=== PATIENT | female | born 1940 | race African-American/Black ===

== ENCOUNTER 2016-12-31 09:23 | Inpatient (IN) | payer MEDICARE ==
[~2016-12-31] VITALS: Ht 156.2 cm; Wt 66.0 kg
[~2016-12-31 09:23] MED LIST: ASPI325T4 PO; ATOR10TA60 PO; CALC600T4 PO; CHOL10003 PO; CHOL400C2 PO; CLOP75TA27 PO; CYAN10005 PO; HYDR12.53 PO; METF500T4 PO; VITA1TAB19 PO
--- NOTE | 2016-12-31 09:32 | PHYS DOC ---
Past Medical History Past Medical History: CVA, Diabetes-Type II, High Cholesterol, Hypertension, TIA, Other Additional Past Medical Histor: seasonal allergies,BELLS PALSEY Past Surgical History: Cholecystectomy, Tonsillectomy, Other Additional Past Surgical Histo: left knee surgery Alcohol Use: None Drug Use: None Adult General HPI HPI Patient is a 76 year old female presenting to the emergency department for evaluation of visual changes that started approximately 845 this morning. Patient says that both of her eyes appears to have crinkled up cellophane appearance. She denies any eye pain fevers chills nausea vomiting or headache. Patient has had a stroke in the past which causes her right hemianopsia and she says this is unchanged in addition to her right-sided facial droop. 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 Patient denies any difficulty speaking dizziness or change in her gait. She is in no obvious distress with normal vital signs. Review of Systems Review of Systems Constitutional: Denies fever or chills [] Eyes: + change in visual acuity. No redness, or eye pain [] HENT: Denies nasal congestion or sore throat [] Respiratory: Denies cough or shortness of breath [] Cardiovascular: No additional information not addressed in HPI [] GI: Denies abdominal pain, nausea, vomiting, bloody stools or diarrhea [] : Denies dysuria or hematuria [] Musculoskeletal: Denies back pain or joint pain [] Integument: Denies rash or skin lesions [] Neurologic: Denies headache, focal weakness or sensory changes [] Current Medications Current Medications Current Medications Medications (Trade) Dose Ordered Sig/[facility] Start Time Stop Time Status Last Admin Dose Admin Ondansetron HCl (Zofran) 4 mg PRN Q8HRS PRN 12/31/16 11:45 01/01/17 11:44 Allergies Allergies Allergies Coded Allergies Type Severity Reaction Last Updated Verified codeine Adverse Reaction Intermediate nausea 01/31/15 Yes ibuprofen Adverse Reaction Intermediate "increased heart rate" 01/31/15 Yes Uncoded Allergies Type Severity Reaction Last Updated Verified antihistamines Adverse Reaction Mild Palpitations 01/31/15 Physical Exam Physical Exam Constitutional: Well developed, well nourished, no acute distress, non-toxic appearance. [] HENT: Normocephalic, atraumatic, bilateral external ears normal, oropharynx moist, no oral exudates, nose normal. [] Eyes: PERRLA, EOMI, conjunctiva normal, no discharge. [] Neck: Normal range of motion, no tenderness, supple, no stridor. [] Cardiovascular:Heart rate regular rhythm, no murmur [] Lungs & Thorax: Bilateral breath sounds clear to auscultation [] Abdomen: Bowel sounds normal, soft, no tenderness, no masses, no pulsatile masses. [] Skin: Warm, dry, no erythema, no rash. [] Back: No tenderness, no CVA tenderness. [] Extremities: No tenderness, no cyanosis, no clubbing, ROM intact, no edema. [] Neurologic: Alert and oriented X 3, normal motor function. Cranial nerves reveal slight right-sided facial droop. Current Patient Data Vital Signs Vital Signs Date Time Temp Pulse Resp B/P (MAP) Pulse Ox O2 Delivery O2 Flow Rate FiO2 12/31/16 09:23 98.5 90 18 144/85 (104) 97 Room Air 98.5 Lab Values Laboratory Tests Test 12/31/16 09:50 12/31/16 10:40 White Blood Count 3.3 x10^3/uL (4.0-11.0) L Red Blood Count 3.94 x10^6/uL (3.50-5.40) Hemoglobin 12.0 g/dL (12.0-15.5) Hematocrit 34.8 % (36.0-47.0) L Mean Corpuscular Volume 88 fL (79-100) Mean Corpuscular Hemoglobin 30 pg (25-35) Mean Corpuscular Hemoglobin Concent 34 g/dL (31-37) Red Cell Distribution Width 14.5 % (11.5-14.5) Platelet Count 285 x10^3/uL (140-400) Neutrophils (%) (Auto) 40 % (31-73) Lymphocytes (%) (Auto) 49 % (24-48) H Monocytes (%) (Auto) 8 % (0-9) Eosinophils (%) (Auto) 2 % (0-3) Basophils (%) (Auto) 1 % (0-3) Neutrophils # (Auto) 1.3 x10^3uL (1.8-7.7) L Lymphocytes # (Auto) 1.6 x10^3/uL (1.0-4.8) Monocytes # (Auto) 0.3 x10^3/uL (0.0-1.1) Eosinophils # (Auto) 0.1 x10^3/uL (0.0-0.7) Basophils # (Auto) 0.0 x10^3/uL (0.0-0.2) Prothrombin Time 14.1 SEC (11.7-14.0) H Prothrombin Time INR 1.2 (0.8-1.1) H PTT 29 SEC (24-38) Sodium Level 138 mmol/L (136-145) Potassium Level 3.3 mmol/L (3.5-5.1) L Chloride Level 101 mmol/L (98-107) Carbon Dioxide Level 29 mmol/L (21-32) Anion Gap 8 (6-14) Blood Urea Nitrogen 14 mg/dL (7-20) Creatinine 0.6 mg/dL (0.6-1.0) Estimated GFR (Cockcroft-Gault) 117.6 BUN/Creatinine Ratio 23 (6-20) H Glucose Level 123 mg/dL (70-99) H Calcium Level 9.2 mg/dL (8.5-10.1) Magnesium Level 1.3 mg/dL (1.8-2.4) L Total Bilirubin 0.8 mg/dL (0.2-1.0) Aspartate Amino Transferase (AST) 23 U/L (15-37) Alanine Aminotransferase (ALT) 21 U/L (14-59) Alkaline Phosphatase 46 U/L (46-116) Creatine Kinase 68 U/L (26-192) Troponin I Quantitative < 0.017 ng/mL (0.000-0.055) CT-Alq-M-Type Natriuretic Peptide 59 pg/mL (0-449) Total Protein 8.5 g/dL (6.4-8.2) H Albumin 3.9 g/dL (3.4-5.0) Albumin/Globulin Ratio 0.8 (1.0-1.7) L Lipase 124 U/L (73-393) Thyroid Stimulating Hormone (TSH) 0.889 uIU/mL (0.358-3.74) Ethyl Alcohol Level < 10 mg/dL (0-10) Urine Collection Type Unknown Urine Color Yellow Urine Clarity Clear Urine pH 6.5 Urine Specific Harvey 1.010 Urine Protein Negative mg/dL (NEG-TRACE) Urine Glucose (UA) Negative mg/dL (NEG) Urine Ketones (Stick) Negative mg/dL (NEG) Urine Blood Negative (NEG) Urine Nitrite Negative (NEG) Urine Bilirubin Negative (NEG) Urine Urobilinogen Dipstick 0.2 mg/dL (0.2 mg/dL) Urine Leukocyte Esterase Trace (NEG) Urine RBC 0 /HPF (0-2) Urine WBC 1-4 /HPF (0-4) Urine Squamous Epithelial Cells Occ /LPF Urine Bacteria Few /HPF (0-FEW) Urine Opiates Screen Neg (NEG) Urine Methadone Screen Neg (NEG) Urine Barbiturates Neg (NEG) Urine Phencyclidine Screen Neg (NEG) Urine Amphetamine/Methamphetamine Neg (NEG) Urine Benzodiazepines Screen Neg (NEG) Urine Cocaine Screen Neg (NEG) Urine Cannabinoids Screen Neg (NEG) Urine Ethyl Alcohol Neg (NEG) Laboratory Tests 12/31/16 09:50 Laboratory Tests 12/31/16 09:50 EKG EKG [] Radiology/Procedures Radiology/Procedures CT of the head without contrast, 12/31/2016: History: Right facial droop, visual changes Comparison is made to a study from 12/24/2014. There is mild cerebral atrophy. The ventricles are mildly prominent on a compensatory basis. There is no shift of the midline structures. There is no evidence of acute intracranial hemorrhage or mass effect. There are mild bilateral deep white matter lucencies compatible with chronic ischemic change. There is a small area of encephalomalacia medially in the left occipital lobe compatible with an old infarct, also noted on the 12/25/2014 MR exam. There is calcific plaquing of the distal internal carotid arteries. IMPRESSION: 1. Cerebral atrophy. 2. Old left occipital lobe infarct. 3. Mild chronic ischemic change in the deep white matter bilaterally. Note: The findings were called to personnel in the [facility] ER at 9:40 AM on 12/31/2016. PQRS Compliance Statement: One or more of the following individualized dose reduction techniques were utilized for this examination: 1. Automated exposure control 2. Adjustment of the mA and/or kV according to patient size 3. Use of iterative reconstruction technique DICTATED and SIGNED BY: NEO BAUMANN MD DATE: 12/31/16 0934 Portable chest, 12/31/2016: History: Visual disturbance, possible stroke Comparison is made to a study from 12/24/2014. The heart is within normal limits in size. There is tortuosity of the thoracic aorta. The pulmonary vascularity is normal. No pulmonary infiltrates are seen. There is no evidence of pleural fluid. There is a mild thoracic scoliosis with multilevel degenerative change. IMPRESSION: No acute cardiopulmonary abnormality is detected. DICTATED and SIGNED BY: NEO BAUMANN MD DATE: 12/31/16 09 Course & Med Decision Making Course & Med Decision Making Patient says that the vision changes are coming and going. She is in a TPA window but given her symptoms are coming and going we'll defer TPA at this time. I spoke to Dr. Bahena and he requested MRI. Dr. Knapp is willing to admit patient. Dragon Disclaimer Dragon Disclaimer This electronic medical record was generated, in whole or in part, using a voice recognition dictation system. Departure Departure Impression: Primary Impression: TIA (transient ischemic attack) Disposition: 09 ADMITTED INPATIENT Admitting Physician: Lubna Knapp Condition: GOOD Referrals: LUBNA KNAPP MD (PCP) Problem Qualifiers Primary Impression: TIA (transient ischemic attack) Transient cerebral ischemia type: unspecified Qualified Codes: G45.9 - Transient cerebral ischemic attack, unspecified KATERIN YANEZ DO December 31, 2016 09:32
--- NOTE | 2016-12-31 09:42 | RAD ---
CT of the head without contrast, 12/31/2016: History: Right facial droop, visual changes Comparison is made to a study from 12/24/2014. There is mild cerebral atrophy. The ventricles are mildly prominent on a compensatory basis. There is no shift of the midline structures. There is no evidence of acute intracranial hemorrhage or mass effect. There are mild bilateral deep white matter lucencies compatible with chronic ischemic change. There is a small area of encephalomalacia medially in the left occipital lobe compatible with an old infarct, also noted on the 12/25/2014 MR exam. There is calcific plaquing of the distal internal carotid arteries. IMPRESSION: 1. Cerebral atrophy. 2. Old left occipital lobe infarct. 3. Mild chronic ischemic change in the deep white matter bilaterally. Note: The findings were called to personnel in the [facility] ER at 9:40 AM on 12/31/2016. PQRS Compliance Statement: One or more of the following individualized dose reduction techniques were utilized for this examination: 1. Automated exposure control 2. Adjustment of the mA and/or kV according to patient size 3. Use of iterative reconstruction technique
--- NOTE | 2016-12-31 09:44 | RAD ---
Portable chest, 12/31/2016: History: Visual disturbance, possible stroke Comparison is made to a study from 12/24/2014. The heart is within normal limits in size. There is tortuosity of the thoracic aorta. The pulmonary vascularity is normal. No pulmonary infiltrates are seen. There is no evidence of pleural fluid. There is a mild thoracic scoliosis with multilevel degenerative change. IMPRESSION: No acute cardiopulmonary abnormality is detected.
[2016-12-31 10:17] LABS: BASO % 1 % (0-3); EOS % 2 % (0-3); HEMATOCRIT 34.8 % (36.0-47.0); LYMPH # 1.6 x10^3/uL (1.0-4.8); LYMPH % 49 % (24-48); MEAN CORPUSCULAR HEMOGLOBIN 30 pg (25-35); MEAN CORPUSCULAR HGB CONC 34 g/dL (31-37); MEAN CORPUSCULAR VOLUME 88 fL (79-100); MONO % 8 % (0-9); NEUT % 40 % (31-73); PLATELET COUNT 285 x10^3/uL (140-400); RED BLOOD COUNT 3.94 x10^6/uL (3.50-5.40); RED CELL DISTRIBUTION WIDTH 14.5 % (11.5-14.5); WHITE BLOOD COUNT 3.3 x10^3/uL (4.0-11.0)
[2016-12-31 10:26] LABS: CALCIUM 9.2 mg/dL (8.5-10.1); CREATININE 0.6 mg/dL (0.6-1.0); GFR 117.6; POTASSIUM 3.3 mmol/L (3.5-5.1)
[2016-12-31 10:31] LABS: INR 1.2 (0.8-1.1); PROTHROMBIN TIME PATIENT 14.1 SEC (11.7-14.0)
[2016-12-31 10:33] LABS: ALBUMIN 3.9 g/dL (3.4-5.0); ALBUMIN/GLOBULIN RATIO 0.8 (1.0-1.7); MAGNESIUM 1.3 mg/dL (1.8-2.4); TOTAL BILIRUBIN 0.8 mg/dL (0.2-1.0); TOTAL PROTEIN 8.5 g/dL (6.4-8.2)
--- NOTE | 2016-12-31 10:37 | EKG ---
[facility] [address] [place] [address] Test Date: 2016-12-31 Test Time: 10:30:28 Pat Name: ANNABEL RAMOS Department: Room: Gender: F [employer]er [employer]er: : 1940 Requested By: KATERIN YANEZ Order Number: [id number] Reading MD: Efe Ventura Measurements Intervals [place] Rate: 86 P: 24 MN: 202 QRS: -15 QRSD: 92 T: 0 QT: 384 QTc: 463 Interpretive Statements SINUS RHYTHM Electronically Signed On 01-01-2017 10:44:12 CDT by Efe Ventura
[2016-12-31 10:54] LABS: BILIRUBIN,URINE NEGATIVE (NEG); GLUCOSE,URINE NEGATIVE (NEG); NITRITE,URINE NEGATIVE (NEG); PH,URINE 6.5; PROTEIN,URINE NEGATIVE (NEG-TRACE); UROBILINOGEN,URINE 0.2 mg/dL (0.2 mg/dL)
[2016-12-31 11:00] LABS: BARBITURATES NEG (NEG); BENZODIAZEPINES NEG (NEG); CANNABINOIDS NEG (NEG); COCAINE NEG (NEG); METHADONE NEG (NEG); OPIATES NEG (NEG); PHENCYCLIDINE NEG (NEG)
[2016-12-31 11:05] LABS: BACTERIA,URINE FEW /HPF (0-FEW); RBC,URINE 0 /HPF (0-2); SQUAMOUS EPITHELIAL CELL,UR OCC /LPF
[2016-12-31] MEDS ORDERED: ONDANSETRON PF 4 MG/2 ML VIAL. IV PRN (11:45)
--- NOTE | 2016-12-31 13:43 | ACF ---
Admission Forms Criteria TRANSIENT ISCHEMIC ATTACK (TIA) Clinical Indications for Admission to Inpatient Care (Place 'X' for any and all applicable criteria): Admission is indicated for ANY ONE of the following(1)(2)(3)(4)(5): [ ]I. Immediate inpatient procedure is needed (eg, endarterectomy). [X]II. Inpatient admission required rather than observation care (Also use Transient Ischemic Attack (TIA): Observation Care Criteria as appropriate) because of ANY ONE of the following: [X]a) Focal neurologic signs or symptoms persist or recurring [ ]b) Cardiac arrhythmias of immediate concern [ ]c) Clinically significant cardiac disorder identified that requires inpatient care (eg, severe valvular disease, atrial myxoma, cardiomyopathy) [ ]d) Hypertension requiring inpatient treatment [ ]e) Parenteral anticoagulation required (eg, alternative forms of anticoagulation not appropriate or not feasible) as indicated by ALL of the following(13): [ ]i) Temporary subtherapeutic anticoagulation unacceptable because of high risk of short-term venous or arterial thromboembolism due to ANY ONE of the following(14)(15)(16): [ ]1) Atrial fibrillation suspected as etiology of TIA(17)(18)(19)(20)(21) [ ]2) Venous thromboembolism within past 12 months [ ]3) Underlying malignancy [ ]4) Patient with mechanical cardiac valve(22)( 23) [ ]5) Underlying hypercoagulable state (eg, protein C or protein S deficiency antithrombin deficiency, antiphospholipid antibodies) [ ]6) Patient at temporary high risk of thromboembolism (eg, status post orthopedic surgery) [ ]ii) Contraindications to outpatient use of "bridging" agent or alternative oral anticoagulant[B] as indicated by ALL of the following: [ ]1) Contraindication to outpatient use of low- molecular-weight heparin as "bridging" agent as indicated by ANY ONE of the following(15): [ ]A. Documented current or history of heparin-induced thrombocytopenia(24) [ ]B. Severe thrombocytopenia (eg, platelet count less than 50,000/mm3 (52g801/L) [ ]C. Documented allergy to heparin, low- molecular-weight heparin, or pork products [ ]D. Renal failure (creatinine clearance less than 30 mL/min/1.73m2 (0.50mL/sec/1.73m2) or on dialysis) [ ]E. Inability to manage self-injection ( eg, by patient, caregiver, or visiting nurse) [ ]2) Contraindication to outpatient use of fondaparinux as "bridging" agent as indicated by ANY ONE of the following(25)(26 )(27)(28): [ ]A. Severe thrombocytopenia (eg, platelet count less than 50,000/mm3 (50 x109/L)) [ ]B.Hypersensitivity to fondaparinux, related drugs, or product components [ ]C.Renal failure (creatinine clearance less than 30 mL/min/1.73m2 (0.50mL/sec/1.73m2) or on dialysis) [ ]D.Inability to manage self-injection ( eg, by patient, caregiver, or visiting nurse [ ]3. Oral direct thrombin inhibitor (eg, dabigatran) or oral coagulation factor Xa inhibitor (eg, rivaroxaban, apixaban) not appropriate as oral anticoagulation (eg, indication not appropriate) or contraindicated (eg, hypersensitivity, creatinine clearance less than 15 mL/min/1.73m2 ( 0.25 mL/sec/1.73m2) or on dialysis). [ ]f) Continuous IV infusion of anticoagulant, platelet inhibitor, vasoactive or antiarrhythmia(18)(19) [ ]g) Other condition, treatment, or monitoring requiring inpatient admission [ ]III. Contraindications and/or Inappropriate clinical situations for Observational Care in patients with Transient Ischemic Attack (TIA), when ANY ONE of the following is required: [ ]a) Patient with persistent or severe neurological deficit 24 [ ]b) Patient with acute CVA or other identified pathology should be admitted to inpatient for further care 25 [X]IV. General contraindications and/or Inappropriate clinical situations for Observational Care in patients with Transient Ischemic Attack (TIA), when ANY ONE of the following is required: [X]a) Prediction of prolongation of LOS based on ANY ONE of the following may be considered as a contraindication for observational care 2, 3, 4, 5, 6, 7, 8, 9, 10, 11 [X]i) Age > 65 yrs. [ ]ii) Patient arriving by ambulance [ ]iii) Patient with high acuity [ ]iv) Patient requiring vital sign monitoring [ ]v) Patient on IV medication [ ]b) Systolic blood pressures 180mmHg 3,12 [ ]c) Patient with altered mental status including delirium and other alteration of consciousness, (3) [ ]d) Patient whose discharge disposition will be to a shelter home or rehabilitation home should not be managed in Emergency Department Observation Unit. CMS rule requires 3 days hospital stay before such placement.3,13 [ ]e) Patient with failure to thrive due to broad array of etiologies 3,16,17 [ ]f) Inability to ambulate 3,14 Extended stay beyond goal length of stay may be needed for(4)(30)(32): [ ]a) Parenteral anticoagulation required [ ]b) Dangerous arrhythmia [ ]c) Cardiac valvular disorder, atrial myxoma, cardiomyopathy [ ]d) Uncontrolled severe hypertension [ ]e) Severe carotid stenosis [ ]f) Active comorbidities (eg, heart failure) [ ]g) Extracranial vertebrobasilar disease(29) [ ]h) Clinical evolution of TIA into cerebrovascular accident (stroke) The original [employer] content created by [employer] has been revised. The portions of thecontent which have been revised are identified through the use of italic text or in bold, and [facility] has neither reviewed nor approved the modified material. All other unmodified content is copyright [employer]. Please see references footnoted in the original [email or web address] edition 2016 Admission Criteria Met?: Yes DOMINGO FRASER December 31, 2016 13:43
--- NOTE | 2016-12-31 14:04 | RAD ---
PROCEDURE MRI of the brain without contrast 12/31/2016 HISTORY Visual changes, confusion and memory loss. TECHNIQUE Unenhanced T1 weighted sagittal and axial, T2 weighted axial and coronal and FLAIR, gradient echo and diffusion weighted axial images of the brain were obtained. FINDINGS Comparison study is dated 12/25/2014. There is generalized parenchymal atrophy. Patchy, confluent and multiple focal areas of abnormally increased signal intensity are seen within the periventricular and subcortical white matter of both cerebral hemispheres on FLAIR and T2 weighted images consistent with areas of small vessel ischemic disease. An area of encephalomalacia is seen involving the medial left occipital lobe. A small area of restricted diffusion is seen involving the right occipital lobe. This measures 1.1 centimeters in greatest diameter. This is consistent with an area of acute ischemia/infarction. There is no significant surrounding edema or associated mass effect at this time. No additional acute parenchymal abnormality is seen. No extra-axial fluid collection is noted. Mild mucosal thickening is seen involving the paranasal sinuses. Normal flow voids are seen within the major vascular structures surrounding the brain parenchyma. IMPRESSION Area of acute ischemia/infarction is seen involving the right occipital lobe. There is no significant surrounding edema or associated mass effect. This result was called to the emergency department. Electronically signed by: Greg Hodge MD (December 31, 2016 14:03:19)
--- NOTE | 2016-12-31 14:27 | PDOC2 ---
NEUROLOGY CONSULT Date of Admission Date of Admission DATE: 12/31/16 TIME: 14:18 Reason for Consult Reason for Consult: altered vision, CVA Referring Physician Referring Physician: Dr. Knapp Source Source: Chart review, Patient History of Present Illness History of Present Illness The patient is a 76-year-old right-handed female complaining of altered vision starting this morning. She says her vision is intermittently like looking through crinkled up cellophane. I last saw her 2 years ago for a left occipital stroke, with negative workup including echocardiogram and CT angiogram. She has been maintained on aspirin and clopidogrel since. She denies headache, cognitive change, focal numbness or weakness. Her blood pressure was intially elevated in the emergency department. Past Medical History Cardiovascular: HTN CENTRAL NERVOUS SYSTEM: CVA Endocrine: Diabetes Past Surgical History Past Surgical History: Cataract Removal, Other (left knee meniscus) Family History Family History: CAD, Other (mother in her 90s, still alive, with patient today) Social History Social History , nonsmoker, nondrinker Current Medications Current Medications Current Medications Ondansetron HCl (Zofran) 4 mg PRN Q8HRS PRN IV NAUSEA/VOMITING; Start 12/31/16 at 11:45; Stop 01/01/17 at 11:44 Active Scripts Active Plavix (Clopidogrel Bisulfate) 75 Mg Tablet 75 Mg PO [id number] 30 Days Reported Vitamin D3 (Cholecalciferol (Vitamin D3)) 1,000 Unit Tablet 1 Tab PO DAILY Vitamin B-12 (Cyanocobalamin (Vitamin B-12)) 1,000 Mcg Tablet 1 Tab PO DAILY Calcium (Calcium Carbonate) 600 Mg Tablet 600 Mg PO BID Metformin Hcl 500 Mg Tablet 1 Tab PO BID Hydrochlorothiazide Capsule (Hydrochlorothiazide) 12.5 Mg Capsule 1 Cap PO DAILY Atorvastatin Calcium 10 Mg Tablet 1 Tab PO DAILY Allergies Allergies: Coded Allergies: codeine (Verified Adverse Reaction, Intermediate, nausea, 01/31/15) ibuprofen (Verified Adverse Reaction, Intermediate, "increased heart rate ", 01/31/15) Uncoded Allergies: antihistamines (Adverse Reaction, Mild, Palpitations, 01/31/15) increased heartrate ROS Review of System No fevers, chills, weight loss, dyspnea, angina, dypsepsia, hematochezia, melena , dysuria. 14-point review of systems is negative Physical Exam Physical Examination PHYSICAL EXAMINATION: Vital signs: see above. General appearance is normal and in no acute distress. HEENT: Normocephalic and nontraumatic. Eyes, nose, ears, and throat are unremarkable. Neck is supple. No lymphadenopathy. No bruits are heard over the carotid artery. No crepitus. NEUROLOGICAL EXAMINATION: Mental Status Examination: Alert. Oriented to time, place, and person. Answers questions and follows commends. Pupils are equal round and reactive to light and accommodation. Funduscopic exam: No papilledema. Extraocular movements are intact. Visual field exam shows no defect on the direct confrontation. No motor or sensory deficits on the facial exam. Uvula in the midline and the soft palate elevated symmetrically. No deviation of the tongue to any direction. Gross hearing is normal. Shoulder shrug normal. Muscle tone is normal. Muscle strength is 5. Deep tendon reflexes are 2+ all around. Plantar reflex is with flexion response bilaterally. Sbjwdk-[id number] test performance is accurate. Tandem walk test is accurate. Alternative movements are accurate. Romberg test is negative. Gait is normal. Sensory exam shows no deficits. No cerebellar signs are elicited. Vitals VITALS Vital Signs Date Time Temp Pulse Resp B/P (MAP) Pulse Ox O2 Delivery O2 Flow Rate FiO2 12/31/16 12:27 95 18 149/101 (117) 98 Room Air 12/31/16 09:23 98.5 98.5 Labs Labs Laboratory Tests Test 12/31/16 09:50 12/31/16 10:40 White Blood Count 3.3 x10^3/uL (4.0-11.0) Red Blood Count 3.94 x10^6/uL (3.50-5.40) Hemoglobin 12.0 g/dL (12.0-15.5) Hematocrit 34.8 % (36.0-47.0) Mean Corpuscular Volume 88 fL (79-100) Mean Corpuscular Hemoglobin 30 pg (25-35) Mean Corpuscular Hemoglobin Concent 34 g/dL (31-37) Red Cell Distribution Width 14.5 % (11.5-14.5) Platelet Count 285 x10^3/uL (140-400) Neutrophils (%) (Auto) 40 % (31-73) Lymphocytes (%) (Auto) 49 % (24-48) Monocytes (%) (Auto) 8 % (0-9) Eosinophils (%) (Auto) 2 % (0-3) Basophils (%) (Auto) 1 % (0-3) Neutrophils # (Auto) 1.3 x10^3uL (1.8-7.7) Lymphocytes # (Auto) 1.6 x10^3/uL (1.0-4.8) Monocytes # (Auto) 0.3 x10^3/uL (0.0-1.1) Eosinophils # (Auto) 0.1 x10^3/uL (0.0-0.7) Basophils # (Auto) 0.0 x10^3/uL (0.0-0.2) Prothrombin Time 14.1 SEC (11.7-14.0) Prothromb Time International Ratio 1.2 (0.8-1.1) Activated Partial Thromboplast Time 29 SEC (24-38) Sodium Level 138 mmol/L (136-145) Potassium Level 3.3 mmol/L (3.5-5.1) Chloride Level 101 mmol/L (98-107) Carbon Dioxide Level 29 mmol/L (21-32) Anion Gap 8 (6-14) Blood Urea Nitrogen 14 mg/dL (7-20) Creatinine 0.6 mg/dL (0.6-1.0) Estimated GFR (Cockcroft-Gault) 117.6 BUN/Creatinine Ratio 23 (6-20) Glucose Level 123 mg/dL (70-99) Calcium Level 9.2 mg/dL (8.5-10.1) Magnesium Level 1.3 mg/dL (1.8-2.4) Total Bilirubin 0.8 mg/dL (0.2-1.0) Aspartate Amino Transf (AST/SGOT) 23 U/L (15-37) Alanine Aminotransferase (ALT/SGPT) 21 U/L (14-59) Alkaline Phosphatase 46 U/L (46-116) Creatine Kinase 68 U/L (26-192) Troponin I Quantitative < 0.017 ng/mL (0.000-0.055) OE-Cki-H-Type Natriuretic Peptide 59 pg/mL (0-449) Total Protein 8.5 g/dL (6.4-8.2) Albumin 3.9 g/dL (3.4-5.0) Albumin/Globulin Ratio 0.8 (1.0-1.7) Lipase 124 U/L (73-393) Thyroid Stimulating Hormone (TSH) 0.889 uIU/mL (0.358-3.74) Ethyl Alcohol Level < 10 mg/dL (0-10) Urine Collection Type Unknown Urine Color Yellow Urine Clarity Clear Urine pH 6.5 Urine Specific [place] 1.010 Urine Protein Negative mg/dL (NEG-TRACE) Urine Glucose (UA) Negative mg/dL (NEG) Urine Ketones (Stick) Negative mg/dL (NEG) Urine Blood Negative (NEG) Urine Nitrite Negative (NEG) Urine Bilirubin Negative (NEG) Urine Urobilinogen Dipstick 0.2 mg/dL (0.2 mg/dL) Urine Leukocyte Esterase Trace (NEG) Urine RBC 0 /HPF (0-2) Urine WBC 1-4 /HPF (0-4) Urine Squamous Epithelial Cells Occ /LPF Urine Bacteria Few /HPF (0-FEW) Urine Opiates Screen Neg (NEG) Urine Methadone Screen Neg (NEG) Urine Barbiturates Neg (NEG) Urine Phencyclidine Screen Neg (NEG) Urine Amphetamine/Methamphetamine Neg (NEG) Urine Benzodiazepines Screen Neg (NEG) Urine Cocaine Screen Neg (NEG) Urine Cannabinoids Screen Neg (NEG) Urine Ethyl Alcohol Neg (NEG) Laboratory Tests Test 12/31/16 09:50 12/31/16 10:40 White Blood Count 3.3 x10^3/uL (4.0-11.0) Red Blood Count 3.94 x10^6/uL (3.50-5.40) Hemoglobin 12.0 g/dL (12.0-15.5) Hematocrit 34.8 % (36.0-47.0) Mean Corpuscular Volume 88 fL (79-100) Mean Corpuscular Hemoglobin 30 pg (25-35) Mean Corpuscular Hemoglobin Concent 34 g/dL (31-37) Red Cell Distribution Width 14.5 % (11.5-14.5) Platelet Count 285 x10^3/uL (140-400) Neutrophils (%) (Auto) 40 % (31-73) Lymphocytes (%) (Auto) 49 % (24-48) Monocytes (%) (Auto) 8 % (0-9) Eosinophils (%) (Auto) 2 % (0-3) Basophils (%) (Auto) 1 % (0-3) Neutrophils # (Auto) 1.3 x10^3uL (1.8-7.7) Lymphocytes # (Auto) 1.6 x10^3/uL (1.0-4.8) Monocytes # (Auto) 0.3 x10^3/uL (0.0-1.1) Eosinophils # (Auto) 0.1 x10^3/uL (0.0-0.7) Basophils # (Auto) 0.0 x10^3/uL (0.0-0.2) Prothrombin Time 14.1 SEC (11.7-14.0) Prothromb Time International Ratio 1.2 (0.8-1.1) Activated Partial Thromboplast Time 29 SEC (24-38) Sodium Level 138 mmol/L (136-145) Potassium Level 3.3 mmol/L (3.5-5.1) Chloride Level 101 mmol/L (98-107) Carbon Dioxide Level 29 mmol/L (21-32) Anion Gap 8 (6-14) Blood Urea Nitrogen 14 mg/dL (7-20) Creatinine 0.6 mg/dL (0.6-1.0) Estimated GFR (Cockcroft-Gault) 117.6 BUN/Creatinine Ratio 23 (6-20) Glucose Level 123 mg/dL (70-99) Calcium Level 9.2 mg/dL (8.5-10.1) Magnesium Level 1.3 mg/dL (1.8-2.4) Total Bilirubin 0.8 mg/dL (0.2-1.0) Aspartate Amino Transf (AST/SGOT) 23 U/L (15-37) Alanine Aminotransferase (ALT/SGPT) 21 U/L (14-59) Alkaline Phosphatase 46 U/L (46-116) Creatine Kinase 68 U/L (26-192) Troponin I Quantitative < 0.017 ng/mL (0.000-0.055) CS-Kon-J-Type Natriuretic Peptide 59 pg/mL (0-449) Total Protein 8.5 g/dL (6.4-8.2) Albumin 3.9 g/dL (3.4-5.0) Albumin/Globulin Ratio 0.8 (1.0-1.7) Lipase 124 U/L (73-393) Thyroid Stimulating Hormone (TSH) 0.889 uIU/mL (0.358-3.74) Ethyl Alcohol Level < 10 mg/dL (0-10) Urine Collection Type Unknown Urine Color Yellow Urine Clarity Clear Urine pH 6.5 Urine Specific [place] 1.010 Urine Protein Negative mg/dL (NEG-TRACE) Urine Glucose (UA) Negative mg/dL (NEG) Urine Ketones (Stick) Negative mg/dL (NEG) Urine Blood Negative (NEG) Urine Nitrite Negative (NEG) Urine Bilirubin Negative (NEG) Urine Urobilinogen Dipstick 0.2 mg/dL (0.2 mg/dL) Urine Leukocyte Esterase Trace (NEG) Urine RBC 0 /HPF (0-2) Urine WBC 1-4 /HPF (0-4) Urine Squamous Epithelial Cells Occ /LPF Urine Bacteria Few /HPF (0-FEW) Urine Opiates Screen Neg (NEG) Urine Methadone Screen Neg (NEG) Urine Barbiturates Neg (NEG) Urine Phencyclidine Screen Neg (NEG) Urine Amphetamine/Methamphetamine Neg (NEG) Urine Benzodiazepines Screen Neg (NEG) Urine Cocaine Screen Neg (NEG) Urine Cannabinoids Screen Neg (NEG) Urine Ethyl Alcohol Neg (NEG) Images Images CT head reviewed. MRI brain: Comparison study is dated 12/25/2014. There is generalized parenchymal atrophy. Patchy, confluent and multiple focal areas of abnormally increased signal intensity are seen within the periventricular and subcortical white matter of both cerebral hemispheres on FLAIR and T2 weighted images consistent with areas of small vessel ischemic disease. An area of encephalomalacia is seen involving the medial left occipital lobe. A small area of restricted diffusion is seen involving the right occipital lobe. This measures 1.1 centimeters in greatest diameter. This is consistent with an area of acute ischemia/infarction. There is no significant surrounding edema or associated mass effect at this time. No additional acute parenchymal abnormality is seen. No extra-axial fluid collection is noted. Mild mucosal thickening is seen involving the paranasal sinuses. Normal flow voids are seen within the major vascular structures surrounding the brain parenchyma. IMPRESSION Area of acute ischemia/infarction is seen involving the right occipital lobe. There is no significant surrounding edema or associated mass effect. Assessment/Plan Assessment/Plan Impression: Right occipital stroke Prior strokes, negative workup Was not a TPA candidate, fluctuating, mild, vague symptoms. Recommendation: We need to search for an embolic source Cardiology consult for PHIL and outpatient loop recorder. Continue Plavix Check Lipids Rehab to see. Hold on repeat CTA Thank you for letting me help with the patient's care. FRANCISCO PATINO MD December 31, 2016 14:27
[2016-12-31] MEDS ORDERED: LABETALOL 20 MG/4 ML DISP.SYRIN. IV PRN (14:30)
[2016-12-31] MEDS ORDERED: ACETAMINOPHEN 325 MG TABLET. PO PRN (14:30)
[2016-12-31] MEDS ORDERED: 0.9 % SODIUM CHLORIDE 10 ML DISP.SYRIN. IV PRN ×2 (14:30→16:15)
[2016-12-31] MEDS ORDERED: ACETAMINOPHEN 650 MG SUPP.RECT. PR PRN (14:30)
[2016-12-31 15:53] VITALS: BP 161/110
[2016-12-31 15:55] VITALS: BP 161/110
[2016-12-31] MEDS ORDERED: POTASSIUM CHLORIDE 20 MEQ TABLET.ER. PO ONE (16:00)
[2016-12-31] MEDS ORDERED: LIDOCAINE 2% TOPICAL JELLY 5GM TUBE. TP ONE (16:15)
[2016-12-31] MEDS ORDERED: LIDOCAINE 2% VISCOUS 15 ML SOLUTION. MM ONE (16:15)
[2016-12-31] MEDS ORDERED: BENZOCAINE ONE 20% MUCOSAL SPRAY. MM (16:15)
--- NOTE | 2016-12-31 16:22 | PDOC2 ---
TARYN PLUNKETT JOGGLE PRESS OPERATOR 12/31/16 1622: CARDIAC CONSULT DATE OF CONSULT Date of Consult DATE: 12/31/16 TIME: 15:47 REASON FOR CONSULT Reason for Consult: recurrent embolic CVA's. PHIL and outpatient cardioversion REFERRING PHYSICIAN Referring Physician: Dr. Smiley SOURCE Source: Chart review, Patient HISTORY OF PRESENT ILLNESS HISTORY OF PRESENT ILLNESS This is a 76 yo female who presented with complaints vision changes. MRI notable for acute right occipital lobe infarct. H/o left occipital stroke in 2014. Underwent further workup at that time, including an echocardiogram and CT angiogram, which did not reveal any acute abnormalities. Given reoccurrence, we were asked to see patient for PHIL and loop recorded implantation. PAST MEDICAL HISTORY Cardiovascular: HTN, Hyperlipidemia CENTRAL NERVOUS SYSTEM: CVA GI: No pertinent hx Heme/Onc: No pertinent hx Hepatobiliary: No pertinent hx Psych: No pertinent hx Rheumatologic: No pertinent hx Infectious disease: No pertinent hx ENT: No pertinent hx Renal/: No pertinent hx Endocrine: Diabetes Dermatology: No pertinent hx PAST SURGICAL HISTORY Past Surgical History: Cholecystectomy, Cataract Removal, Hernia Repair, Other (left knee meniscus) FAMILY HISTORY Family History: Coronary Artery Disease (mother ) SOCIAL HISTORY Smoke: <1 pack per day ALCOHOL: none Drugs: None Lives: with Family ALLERGIES ALLERGIES: Coded Allergies: codeine (Verified Adverse Reaction, Intermediate, nausea, 01/31/15) ibuprofen (Verified Adverse Reaction, Intermediate, "increased heart rate ", 01/31/15) Uncoded Allergies: antihistamines (Adverse Reaction, Mild, Palpitations, 01/31/15) increased heartrate ROS Review of System point ROS conducted with pertinent positives noted above in HPI. PHYSICAL EXAM General: Alert, Oriented X3, Cooperative, No acute distress HEENT: Atraumatic, Mucous membr. moist/pink Lungs: Clear to auscultation, Normal air movement Heart: Regular rate, Normal S1, Normal S2 Abdomen: Soft, No tenderness Extremities: No edema, Normal pulses Skin: No significant lesion Neuro: Normal speech, Sensation intact Psych/Mental Status: Mental status NL, Mood NL VITALS VITALS Vital Signs Date Time Temp Pulse Resp B/P (MAP) Pulse Ox O2 Delivery O2 Flow Rate FiO2 12/31/16 14:27 83 17 129/83 (98) 96 Room Air 12/31/16 09:23 98.5 98.5 LABS Lab: Laboratory Tests Test 12/31/16 09:50 12/31/16 10:40 White Blood Count 3.3 x10^3/uL (4.0-11.0) Red Blood Count 3.94 x10^6/uL (3.50-5.40) Hemoglobin 12.0 g/dL (12.0-15.5) Hematocrit 34.8 % (36.0-47.0) Mean Corpuscular Volume 88 fL (79-100) Mean Corpuscular Hemoglobin 30 pg (25-35) Mean Corpuscular Hemoglobin Concent 34 g/dL (31-37) Red Cell Distribution Width 14.5 % (11.5-14.5) Platelet Count 285 x10^3/uL (140-400) Neutrophils (%) (Auto) 40 % (31-73) Lymphocytes (%) (Auto) 49 % (24-48) Monocytes (%) (Auto) 8 % (0-9) Eosinophils (%) (Auto) 2 % (0-3) Basophils (%) (Auto) 1 % (0-3) Neutrophils # (Auto) 1.3 x10^3uL (1.8-7.7) Lymphocytes # (Auto) 1.6 x10^3/uL (1.0-4.8) Monocytes # (Auto) 0.3 x10^3/uL (0.0-1.1) Eosinophils # (Auto) 0.1 x10^3/uL (0.0-0.7) Basophils # (Auto) 0.0 x10^3/uL (0.0-0.2) Prothrombin Time 14.1 SEC (11.7-14.0) Prothromb Time International Ratio 1.2 (0.8-1.1) Activated Partial Thromboplast Time 29 SEC (24-38) Sodium Level 138 mmol/L (136-145) Potassium Level 3.3 mmol/L (3.5-5.1) Chloride Level 101 mmol/L (98-107) Carbon Dioxide Level 29 mmol/L (21-32) Anion Gap 8 (6-14) Blood Urea Nitrogen 14 mg/dL (7-20) Creatinine 0.6 mg/dL (0.6-1.0) Estimated GFR (Cockcroft-Gault) 117.6 BUN/Creatinine Ratio 23 (6-20) Glucose Level 123 mg/dL (70-99) Calcium Level 9.2 mg/dL (8.5-10.1) Magnesium Level 1.3 mg/dL (1.8-2.4) Total Bilirubin 0.8 mg/dL (0.2-1.0) Aspartate Amino Transf (AST/SGOT) 23 U/L (15-37) Alanine Aminotransferase (ALT/SGPT) 21 U/L (14-59) Alkaline Phosphatase 46 U/L (46-116) Creatine Kinase 68 U/L (26-192) Troponin I Quantitative < 0.017 ng/mL (0.000-0.055) SC-Xdo-Y-Type Natriuretic Peptide 59 pg/mL (0-449) Total Protein 8.5 g/dL (6.4-8.2) Albumin 3.9 g/dL (3.4-5.0) Albumin/Globulin Ratio 0.8 (1.0-1.7) Lipase 124 U/L (73-393) Thyroid Stimulating Hormone (TSH) 0.889 uIU/mL (0.358-3.74) Ethyl Alcohol Level < 10 mg/dL (0-10) Urine Collection Type Unknown Urine Color Yellow Urine Clarity Clear Urine pH 6.5 Urine Specific [place] 1.010 Urine Protein Negative mg/dL (NEG-TRACE) Urine Glucose (UA) Negative mg/dL (NEG) Urine Ketones (Stick) Negative mg/dL (NEG) Urine Blood Negative (NEG) Urine Nitrite Negative (NEG) Urine Bilirubin Negative (NEG) Urine Urobilinogen Dipstick 0.2 mg/dL (0.2 mg/dL) Urine Leukocyte Esterase Trace (NEG) Urine RBC 0 /HPF (0-2) Urine WBC 1-4 /HPF (0-4) Urine Squamous Epithelial Cells Occ /LPF Urine Bacteria Few /HPF (0-FEW) Urine Opiates Screen Neg (NEG) Urine Methadone Screen Neg (NEG) Urine Barbiturates Neg (NEG) Urine Phencyclidine Screen Neg (NEG) Urine Amphetamine/Methamphetamine Neg (NEG) Urine Benzodiazepines Screen Neg (NEG) Urine Cocaine Screen Neg (NEG) Urine Cannabinoids Screen Neg (NEG) Urine Ethyl Alcohol Neg (NEG) ECHOCARDIOGRAM ECHOCARDIOGRAM <Conclusion> The left ventricle is normal size. The left ventricular systolic function is normal and the ejection fraction is within normal range. The Ejection Fraction is 55-60%. There is borderline concentric left ventricular hypertrophy. Injection of bubbles documented no interatrial shunt. The interatrial septum is intact with no evidence for an atrial septal defect or patent foramen ovale as noted on 2-D or Doppler imaging. There is no significant aortic valvular stenosis. Doppler and Color Flow revealed no significant aortic regurgitation. Doppler and Color Flow revealed trace to mild mitral valve regurgitation. Doppler and Color Flow revealed mild tricuspid regurgitation. The PA pressure was estimated at 34 mmHg. There is no evidence of significant pericardial effusion. DATE: 02/02/15 1100 ASSESSMENT/PLAN ASSESSMENT/PLAN 1. Acute CVA with previous CVA; embolic etiology? 2. Hypertension 3. Hyperlipidemia 4. Diabetes 5. Hypokalemia/ hypomagnesemia Recommendations Check lipids replace K and Mg; Monitor lytes Loop recorded indicated, given recurrent CVA, to r/o contributing arrhythmia, along with PHIL to rule out cardioembolic etiology. R/b/a discussed with patient and is agreeable. Will plan for PHIL and loop recorder implant in am. Problems: CHARY OVIEDO MD 12/31/167: CARDIAC CONSULT ALLERGIES ALLERGIES: Coded Allergies: codeine (Verified Adverse Reaction, Intermediate, nausea, 01/31/15) ibuprofen (Verified Adverse Reaction, Intermediate, "increased heart rate ", 01/31/15) Uncoded Allergies: antihistamines (Adverse Reaction, Mild, Palpitations, 01/31/15) increased heartrate ASSESSMENT/PLAN ASSESSMENT/PLAN Pt. seen and examined. Agree with above [employer] TECHNICIAN note. 76 y.o woman with recurrent CVA. Previously wore a holter monitor and this did not show any pathology according to patient. Denies any chest pain, fluttering or palpitations. Normal cardiac exam. No carotid bruits. Trace edema. Labs reviewed. Meds noted. Reviewed neuro note. Will proceed with PHIL tomorrow and consider implantation of the loop recorder at the same time. Discussed r/b/a to above procedures with patient, her and patient's mother and the patient is agreeable. All her questions were answered to her satisfaction. Will proceed tomorrow. Problems: TARYN PLUNKETT APRN December 31, 2016 16:22 CHARY OVIEDO MD December 31, 2016 22:47
[2016-12-31] MEDS ORDERED: MAGNESIUM SULFATE 2GM 50 ML IV ONE (16:30)
[2016-12-31] MEDS: metFORMIN 500 MG TABLET PO SCH (16:53)
[2016-12-31] MEDS ORDERED: ENOXAPARIN 40 MG/0.4 ML SYRINGE. SQ SCH ×2 (17:00→19:00)
[2016-12-31] MEDS: IV NORMAL SALINE 1000ML BAG 1,000 ML IV SCH (17:35)
[2016-12-31] MEDS: CALCIUM CARBONATE 500 MG TABLET PO SCH (17:38)
[2016-12-31 19:53] VITALS: BP 134/81
[2016-12-31] MEDS ORDERED: ATORVASTATIN CALCIUM 10 MG TABLET. PO SCH (21:00)
[2016-12-31 23:34] VITALS: BP 155/91
[2017-01-01 03:20] VITALS: BP 130/87
[2017-01-01 04:29] LABS: BASO % 0 % (0-3); EOS % 2 % (0-3); HEMATOCRIT 33.7 % (36.0-47.0); HEMOGLOBIN 11.7 g/dL (12.0-15.5); LYMPH # 1.9 x10^3/uL (1.0-4.8); LYMPH % 40 % (24-48); MEAN CORPUSCULAR HEMOGLOBIN 31 pg (25-35); MEAN CORPUSCULAR HGB CONC 35 g/dL (31-37); MEAN CORPUSCULAR VOLUME 88 fL (79-100); MONO % 9 % (0-9); NEUT % 49 % (31-73); PLATELET COUNT 266 x10^3/uL (140-400); RED BLOOD COUNT 3.85 x10^6/uL (3.50-5.40); RED CELL DISTRIBUTION WIDTH 14.2 % (11.5-14.5); WHITE BLOOD COUNT 4.7 x10^3/uL (4.0-11.0)
[2017-01-01 04:44] LABS: CALCIUM 8.6 mg/dL (8.5-10.1); CREATININE 0.7 mg/dL (0.6-1.0); GFR 98.4; POTASSIUM 3.7 mmol/L (3.5-5.1)
[2017-01-01 04:58] LABS: CHOLESTEROL/HDL RATIO 2.5
[2017-01-01] MEDS: IV NORMAL SALINE 1000ML BAG 1,000 ML IV SCH ×2 (05:39→07:42)
[2017-01-01 07:08] VITALS: BP 141/92
[2017-01-01] MEDS: hydroCHLOROthiazide 12.5 MG CAPSULE PO SCH ×2 (07:10→13:29)
[2017-01-01] MEDS: CLOPIDOGREL BISULFATE 75 MG TABLET PO SCH ×2 (07:10→13:29)
[2017-01-01] MEDS: metFORMIN 500 MG TABLET PO SCH (07:10)
[2017-01-01] MEDS: CALCIUM CARBONATE 500 MG TABLET PO SCH (07:10)
[2017-01-01] MEDS: CYANOCOBALAMIN (VITAMIN B-12) 1,000 MCG TABLET. PO SCH ×2 (07:11→13:28)
[2017-01-01] MEDS: CHOLECALCIFEROL (VITAMIN D3) 1,000 UNIT TABLET PO SCH ×2 (07:11→13:29)
--- NOTE | 2017-01-01 08:33 | PDOC ---
PROGRESS NOTES Subjective Subjective Patient reports vision is back to normal. Denies weakness or pain. Objective Objective Vital Signs Date Time Temp Pulse Resp B/P (MAP) Pulse Ox O2 Delivery O2 Flow Rate FiO2 01/01/17 07:47 Room Air 01/01/17 07:08 97.8 84 17 141/92 (108) 98 97.8 Intake and Output 01/01/17 07:00 Intake Total 380 ml Balance 380 ml Intake Oral 380 ml # Voids 4 Physical Exam Abdomen: Normal bowel sounds, Soft, No tenderness Heart: Regular rate Extremities: No edema General: Alert, Oriented X3, No acute distress Lungs: Clear to auscultation Assessment Assessment Problems Medical Problems: (1) TIA (transient ischemic attack) Status: Acute Plan Plan of Care 1. 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 Visual changes have resolved. Patient to get PHIL and loop recorder today for further evaluation. Continue Plavix daily. 2. HTN - usually well controlled with her usual HCTZ, continue. 3. DM2 - has been well controlled with Metformin, continue. 4. hyperlipidemia - close to goal with LDL 79. Patient has been taking QOD, can increase this to daily if recommended. 5. hypomagnesemia - replacing. Can discharge with new scrip for this. Comment Review of Relevant I have reviewed the following items bruno (where applicable) has been applied. Labs Laboratory Tests Test 12/31/16 09:50 12/31/16 10:40 12/31/16 17:08 12/31/16 20:54 White Blood Count 3.3 x10^3/uL (4.0-11.0) Red Blood Count 3.94 x10^6/uL (3.50-5.40) Hemoglobin 12.0 g/dL (12.0-15.5) Hematocrit 34.8 % (36.0-47.0) Mean Corpuscular Volume 88 fL (79-100) Mean Corpuscular Hemoglobin 30 pg (25-35) Mean Corpuscular Hemoglobin Concent 34 g/dL (31-37) Red Cell Distribution Width 14.5 % (11.5-14.5) Platelet Count 285 x10^3/uL (140-400) Neutrophils (%) (Auto) 40 % (31-73) Lymphocytes (%) (Auto) 49 % (24-48) Monocytes (%) (Auto) 8 % (0-9) Eosinophils (%) (Auto) 2 % (0-3) Basophils (%) (Auto) 1 % (0-3) Neutrophils # (Auto) 1.3 x10^3uL (1.8-7.7) Lymphocytes # (Auto) 1.6 x10^3/uL (1.0-4.8) Monocytes # (Auto) 0.3 x10^3/uL (0.0-1.1) Eosinophils # (Auto) 0.1 x10^3/uL (0.0-0.7) Basophils # (Auto) 0.0 x10^3/uL (0.0-0.2) Prothrombin Time 14.1 SEC (11.7-14.0) Prothromb Time International Ratio 1.2 (0.8-1.1) Activated Partial Thromboplast Time 29 SEC (24-38) Sodium Level 138 mmol/L (136-145) Potassium Level 3.3 mmol/L (3.5-5.1) Chloride Level 101 mmol/L (98-107) Carbon Dioxide Level 29 mmol/L (21-32) Anion Gap 8 (6-14) Blood Urea Nitrogen 14 mg/dL (7-20) Creatinine 0.6 mg/dL (0.6-1.0) Estimated GFR (Cockcroft-Gault) 117.6 BUN/Creatinine Ratio 23 (6-20) Glucose Level 123 mg/dL (70-99) Calcium Level 9.2 mg/dL (8.5-10.1) Magnesium Level 1.3 mg/dL (1.8-2.4) Total Bilirubin 0.8 mg/dL (0.2-1.0) Aspartate Amino Transf (AST/SGOT) 23 U/L (15-37) Alanine Aminotransferase (ALT/SGPT) 21 U/L (14-59) Alkaline Phosphatase 46 U/L (46-116) Creatine Kinase 68 U/L (26-192) Troponin I Quantitative < 0.017 ng/mL (0.000-0.055) PG-Tvm-N-Type Natriuretic Peptide 59 pg/mL (0-449) Total Protein 8.5 g/dL (6.4-8.2) Albumin 3.9 g/dL (3.4-5.0) Albumin/Globulin Ratio 0.8 (1.0-1.7) Lipase 124 U/L (73-393) Thyroid Stimulating Hormone (TSH) 0.889 uIU/mL (0.358-3.74) Ethyl Alcohol Level < 10 mg/dL (0-10) Urine Collection Type Unknown Urine Color Yellow Urine Clarity Clear Urine pH 6.5 Urine Specific Orient 1.010 Urine Protein Negative mg/dL (NEG-TRACE) Urine Glucose (UA) Negative mg/dL (NEG) Urine Ketones (Stick) Negative mg/dL (NEG) Urine Blood Negative (NEG) Urine Nitrite Negative (NEG) Urine Bilirubin Negative (NEG) Urine Urobilinogen Dipstick 0.2 mg/dL (0.2 mg/dL) Urine Leukocyte Esterase Trace (NEG) Urine RBC 0 /HPF (0-2) Urine WBC 1-4 /HPF (0-4) Urine Squamous Epithelial Cells Occ /LPF Urine Bacteria Few /HPF (0-FEW) Urine Opiates Screen Neg (NEG) Urine Methadone Screen Neg (NEG) Urine Barbiturates Neg (NEG) Urine Phencyclidine Screen Neg (NEG) Urine Amphetamine/Methamphetamine Neg (NEG) Urine Benzodiazepines Screen Neg (NEG) Urine Cocaine Screen Neg (NEG) Urine Cannabinoids Screen Neg (NEG) Urine Ethyl Alcohol Neg (NEG) Glucose (Fingerstick) 129 mg/dL (70-99) 134 mg/dL (70-99) Test 01/01/17 03:48 01/01/17 07:13 White Blood Count 4.7 x10^3/uL (4.0-11.0) Red Blood Count 3.85 x10^6/uL (3.50-5.40) Hemoglobin 11.7 g/dL (12.0-15.5) Hematocrit 33.7 % (36.0-47.0) Mean Corpuscular Volume 88 fL (79-100) Mean Corpuscular Hemoglobin 31 pg (25-35) Mean Corpuscular Hemoglobin Concent 35 g/dL (31-37) Red Cell Distribution Width 14.2 % (11.5-14.5) Platelet Count 266 x10^3/uL (140-400) Neutrophils (%) (Auto) 49 % (31-73) Lymphocytes (%) (Auto) 40 % (24-48) Monocytes (%) (Auto) 9 % (0-9) Eosinophils (%) (Auto) 2 % (0-3) Basophils (%) (Auto) 0 % (0-3) Neutrophils # (Auto) 2.3 x10^3uL (1.8-7.7) Lymphocytes # (Auto) 1.9 x10^3/uL (1.0-4.8) Monocytes # (Auto) 0.4 x10^3/uL (0.0-1.1) Eosinophils # (Auto) 0.1 x10^3/uL (0.0-0.7) Basophils # (Auto) 0.0 x10^3/uL (0.0-0.2) Sodium Level 139 mmol/L (136-145) Potassium Level 3.7 mmol/L (3.5-5.1) Chloride Level 103 mmol/L (98-107) Carbon Dioxide Level 28 mmol/L (21-32) Anion Gap 8 (6-14) Blood Urea Nitrogen 14 mg/dL (7-20) Creatinine 0.7 mg/dL (0.6-1.0) Estimated GFR (Cockcroft-Gault) 98.4 Glucose Level 117 mg/dL (70-99) Calcium Level 8.6 mg/dL (8.5-10.1) Magnesium Level 1.7 mg/dL (1.8-2.4) Triglycerides Level 66 mg/dL (0-150) Cholesterol Level 155 mg/dL (0-200) LDL Cholesterol, Calculated 79 mg/dL (0-100) VLDL Cholesterol, Calculated 13 mg/dL (0-40) Non-HDL Cholesterol Calculated 92 mg/dL (0-129) HDL Cholesterol 63 mg/dL (40-60) Cholesterol/HDL Ratio 2.5 Glucose (Fingerstick) 99 mg/dL (70-99) Laboratory Tests Test 12/31/16 09:50 12/31/16 10:40 12/31/16 17:08 12/31/16 20:54 White Blood Count 3.3 x10^3/uL (4.0-11.0) Red Blood Count 3.94 x10^6/uL (3.50-5.40) Hemoglobin 12.0 g/dL (12.0-15.5) Hematocrit 34.8 % (36.0-47.0) Mean Corpuscular Volume 88 fL (79-100) Mean Corpuscular Hemoglobin 30 pg (25-35) Mean Corpuscular Hemoglobin Concent 34 g/dL (31-37) Red Cell Distribution Width 14.5 % (11.5-14.5) Platelet Count 285 x10^3/uL (140-400) Neutrophils (%) (Auto) 40 % (31-73) Lymphocytes (%) (Auto) 49 % (24-48) Monocytes (%) (Auto) 8 % (0-9) Eosinophils (%) (Auto) 2 % (0-3) Basophils (%) (Auto) 1 % (0-3) Neutrophils # (Auto) 1.3 x10^3uL (1.8-7.7) Lymphocytes # (Auto) 1.6 x10^3/uL (1.0-4.8) Monocytes # (Auto) 0.3 x10^3/uL (0.0-1.1) Eosinophils # (Auto) 0.1 x10^3/uL (0.0-0.7) Basophils # (Auto) 0.0 x10^3/uL (0.0-0.2) Prothrombin Time 14.1 SEC (11.7-14.0) Prothromb Time International Ratio 1.2 (0.8-1.1) Activated Partial Thromboplast Time 29 SEC (24-38) Sodium Level 138 mmol/L (136-145) Potassium Level 3.3 mmol/L (3.5-5.1) Chloride Level 101 mmol/L (98-107) Carbon Dioxide Level 29 mmol/L (21-32) Anion Gap 8 (6-14) Blood Urea Nitrogen 14 mg/dL (7-20) Creatinine 0.6 mg/dL (0.6-1.0) Estimated GFR (Cockcroft-Gault) 117.6 BUN/Creatinine Ratio 23 (6-20) Glucose Level 123 mg/dL (70-99) Calcium Level 9.2 mg/dL (8.5-10.1) Magnesium Level 1.3 mg/dL (1.8-2.4) Total Bilirubin 0.8 mg/dL (0.2-1.0) Aspartate Amino Transf (AST/SGOT) 23 U/L (15-37) Alanine Aminotransferase (ALT/SGPT) 21 U/L (14-59) Alkaline Phosphatase 46 U/L (46-116) Creatine Kinase 68 U/L (26-192) Troponin I Quantitative < 0.017 ng/mL (0.000-0.055) WL-Evq-A-Type Natriuretic Peptide 59 pg/mL (0-449) Total Protein 8.5 g/dL (6.4-8.2) Albumin 3.9 g/dL (3.4-5.0) Albumin/Globulin Ratio 0.8 (1.0-1.7) Lipase 124 U/L (73-393) Thyroid Stimulating Hormone (TSH) 0.889 uIU/mL (0.358-3.74) Ethyl Alcohol Level < 10 mg/dL (0-10) Urine Collection Type Unknown Urine Color Yellow Urine Clarity Clear Urine pH 6.5 Urine Specific Orient 1.010 Urine Protein Negative mg/dL (NEG-TRACE) Urine Glucose (UA) Negative mg/dL (NEG) Urine Ketones (Stick) Negative mg/dL (NEG) Urine Blood Negative (NEG) Urine Nitrite Negative (NEG) Urine Bilirubin Negative (NEG) Urine Urobilinogen Dipstick 0.2 mg/dL (0.2 mg/dL) Urine Leukocyte Esterase Trace (NEG) Urine RBC 0 /HPF (0-2) Urine WBC 1-4 /HPF (0-4) Urine Squamous Epithelial Cells Occ /LPF Urine Bacteria Few /HPF (0-FEW) Urine Opiates Screen Neg (NEG) Urine Methadone Screen Neg (NEG) Urine Barbiturates Neg (NEG) Urine Phencyclidine Screen Neg (NEG) Urine Amphetamine/Methamphetamine Neg (NEG) Urine Benzodiazepines Screen Neg (NEG) Urine Cocaine Screen Neg (NEG) Urine Cannabinoids Screen Neg (NEG) Urine Ethyl Alcohol Neg (NEG) Glucose (Fingerstick) 129 mg/dL (70-99) 134 mg/dL (70-99) Test 01/01/17 03:48 01/01/17 07:13 White Blood Count 4.7 x10^3/uL (4.0-11.0) Red Blood Count 3.85 x10^6/uL (3.50-5.40) Hemoglobin 11.7 g/dL (12.0-15.5) Hematocrit 33.7 % (36.0-47.0) Mean Corpuscular Volume 88 fL (79-100) Mean Corpuscular Hemoglobin 31 pg (25-35) Mean Corpuscular Hemoglobin Concent 35 g/dL (31-37) Red Cell Distribution Width 14.2 % (11.5-14.5) Platelet Count 266 x10^3/uL (140-400) Neutrophils (%) (Auto) 49 % (31-73) Lymphocytes (%) (Auto) 40 % (24-48) Monocytes (%) (Auto) 9 % (0-9) Eosinophils (%) (Auto) 2 % (0-3) Basophils (%) (Auto) 0 % (0-3) Neutrophils # (Auto) 2.3 x10^3uL (1.8-7.7) Lymphocytes # (Auto) 1.9 x10^3/uL (1.0-4.8) Monocytes # (Auto) 0.4 x10^3/uL (0.0-1.1) Eosinophils # (Auto) 0.1 x10^3/uL (0.0-0.7) Basophils # (Auto) 0.0 x10^3/uL (0.0-0.2) Sodium Level 139 mmol/L (136-145) Potassium Level 3.7 mmol/L (3.5-5.1) Chloride Level 103 mmol/L (98-107) Carbon Dioxide Level 28 mmol/L (21-32) Anion Gap 8 (6-14) Blood Urea Nitrogen 14 mg/dL (7-20) Creatinine 0.7 mg/dL (0.6-1.0) Estimated GFR (Cockcroft-Gault) 98.4 Glucose Level 117 mg/dL (70-99) Calcium Level 8.6 mg/dL (8.5-10.1) Magnesium Level 1.7 mg/dL (1.8-2.4) Triglycerides Level 66 mg/dL (0-150) Cholesterol Level 155 mg/dL (0-200) LDL Cholesterol, Calculated 79 mg/dL (0-100) VLDL Cholesterol, Calculated 13 mg/dL (0-40) Non-HDL Cholesterol Calculated 92 mg/dL (0-129) HDL Cholesterol 63 mg/dL (40-60) Cholesterol/HDL Ratio 2.5 Glucose (Fingerstick) 99 mg/dL (70-99) Medications Current Medications Ondansetron HCl (Zofran) 4 mg PRN Q8HRS PRN IV NAUSEA/VOMITING; Start 12/31/16 at 11:45; Stop 01/01/17 at 11:44 Atorvastatin Calcium (Lipitor) 10 mg QHS PO Last administered on 12/31/16 20: 34; Start 12/31/16 at 21:00 Vitamin D (Vitamin D3) 1,000 unit DAILY PO ; Start 01/01/17 at 09:00 Clopidogrel Bisulfate (Plavix) 75 mg DAILYWBKFT PO ; Start 01/01/17 at 08:00 Cyanocobalamin (Vitamin B-12) 1,000 mcg DAILY PO ; Start 01/01/17 at 09:00 Hydrochlorothiazide (Microzide) 12.5 mg DAILY PO ; Start 01/01/17 at 09:00 Metformin HCl (Glucophage) 500 mg BIDWMEALS PO ; Start 12/31/16 at 17:00 Calcium Carbonate/ Glycine (Oscal) 500 mg BIDAFTMEAL PO Last administered on 17:38; Start 12/31/16 at 18:00 Sodium Chloride (Normal Saline Flush) 3 ml QSHIFT PRN IV AFTER MEDS AND BLOOD DRAWS; Start 12/31/16 at 14:30 Sodium Chloride 1,000 ml @ 100 mls/hr Q10H IV Last administered on 01/01/17 05:39; Start 12/31/16 at 14:28 Labetalol HCl (Normodyne) 10 mg PRN Q10MIN PRN IV HYPERTENSION, SEE COMMENTS; Start 12/31/16 at 14:30 Acetaminophen (Tylenol) 650 mg PRN Q6HRS PRN PO FEVER; Start 12/31/16 at 14:30 Acetaminophen (Acetaminophen Supp) 650 mg PRN Q6HRS PRN GA FEVER; Start at 14:30 Enoxaparin Sodium (Lovenox 40mg Syringe) 30 mg Q24H SQ ; Start 12/31/16 at 17:00 ; Stop 12/31/16 at 18:02; Status DC Magnesium Sulfate/ Dextrose 50 ml @ 25 mls/hr 1X ONCE IV Last administered on 12/31/16 17:36; Start 12/31/16 at 16:30; Stop 12/31/16 at 18:29; Status DC Potassium Chloride (Klor-Con) 40 meq 1X ONCE PO Last administered on 17:37; Start 12/31/16 at 16:00; Stop 12/31/16 at 16:05; Status DC Sodium Chloride (Normal Saline Flush) 10 ml QSHIFT PRN IV AFTER MEDS AND BLOOD DRAWS; Start 12/31/16 at 16:15 Lidocaine HCl (Xylocaine 2% Topical 5gm Tube) 1 aroldo 1X ONCE TP ; Start at 16:15; Stop 12/31/16 at 16:22; Status DC Lidocaine HCl (Viscous Lidocaine) 15 ml 1X ONCE MM ; Start 12/31/16 at 16:15; Stop 12/31/16 at 16:22; Status DC Benzocaine (Hurricaine One) 3 spray 1X ONCE MM ; Start 12/31/16 at 16:15; Stop 12/31/16 at 16:22; Status DC Enoxaparin Sodium (Lovenox 40mg Syringe) 40 mg Q24H SQ Last administered on 18:12; Start 12/31/16 at 19:00 Active Scripts Active Plavix (Clopidogrel Bisulfate) 75 Mg Tablet 75 Mg PO DAILYWBKFT 30 Days Reported Vitamin D3 (Cholecalciferol (Vitamin D3)) 1,000 Unit Tablet 1 Tab PO DAILY Vitamin B-12 (Cyanocobalamin (Vitamin B-12)) 1,000 Mcg Tablet 1 Tab PO DAILY Calcium (Calcium Carbonate) 600 Mg Tablet 600 Mg PO BID Metformin Hcl 500 Mg Tablet 1 Tab PO BID Hydrochlorothiazide Capsule (Hydrochlorothiazide) 12.5 Mg Capsule 1 Cap PO DAILY Atorvastatin Calcium 10 Mg Tablet 1 Tab PO DAILY Vitals/I & O Vital Sign - Last 24 Hours 12/31/16 12/31/16 12/31/16 12/31/16 09:23 09:23 09:28 09:33 Temp 98.5 98.5 Pulse 90 94 92 84 Resp 18 18 20 21 B/P (MAP) 144/85 (104) 154/103 (120) 154/100 (118) 138/93 (108) Pulse Ox 97 95 94 98 O2 Delivery Room Air Room Air Room Air Room Air 12/31/16 12/31/16 12/31/16 12/31/16 09:48 10:03 10:18 10:23 Pulse 86 90 90 86 Resp 19 20 20 16 B/P (MAP) 136/92 (107) 149/92 (111) 144/98 (113) 138/92 (107) Pulse Ox 95 96 96 95 O2 Delivery Room Air Room Air Room Air Room Air 12/31/16 12/31/16 12/31/16 12/31/16 10:38 11:08 11:38 12:27 Pulse 86 90 91 95 Resp 19 19 20 18 B/P (MAP) 144/98 (113) 146/100 (115) 148/100 (116) 149/101 (117) Pulse Ox 95 96 98 98 O2 Delivery Room Air Room Air Room Air Room Air 12/31/16 12/31/16 12/31/16 12/31/16 13:27 14:27 15:53 15:55 Temp 97.5 97.5 97.5 97.5 Pulse 88 83 73 73 Resp 20 17 18 18 B/P (MAP) 139/91 (107) 129/83 (98) 161/110 (127) 161/110 (127) Pulse Ox 96 96 90 90 O2 Delivery Room Air Room Air Room Air Room Air 12/31/16 12/31/16 01/01/17 01/01/17 19:53 23:34 03:20 07:08 Temp 97.7 97.6 98.6 97.8 97.7 97.6 98.6 97.8 Pulse 97 71 75 84 Resp 16 20 20 17 B/P (MAP) 134/81 (98) 155/91 (112) 130/87 (101) 141/92 (108) Pulse Ox 95 98 96 98 O2 Delivery Room Air Room Air Room Air Room Air 01/01/17 07:47 O2 Delivery Room Air Intake and Output 12/31/16 12/31/16 01/01/17 15:00 23:00 07:00 Intake Total 200 ml 180 ml Balance 200 ml 180 ml ADAM STILES MD January 01, 2017 08:33
[2017-01-01] MEDS ORDERED: MAGNESIUM CHLORIDE ER 64 MG TABLET.ER PO SCH ×4 (09:00→13:00)
--- NOTE | 2017-01-01 10:07 | PDOC ---
PROGRESS NOTES Assessment Problems Medical Problems: (1) TIA (transient ischemic attack) Status: Acute Right occipital stroke Prior strokes, negative workup Plan Cardiology consult for PHIL and outpatient loop recorder. Continue Plavix Note lipids, increase statin dose Rehab to see. Hold off on adding on aspirin Aim for discharge later today Subjective Vision is improving Objective Vital Signs Date Time Temp Pulse Resp B/P (MAP) Pulse Ox O2 Delivery O2 Flow Rate FiO2 01/01/17 07:47 Room Air 01/01/17 07:08 97.8 84 17 141/92 (108) 98 97.8 Intake and Output 01/01/17 07:00 Intake Total 380 ml Balance 380 ml Intake Oral 380 ml # Voids 4 PHYSICAL EXAM Alert. Oriented to time, place and person. PERRL. EOMI. CN: no focal findings. Muscle tone: normal. Muscle strength:5/5 DTR: 2+ Plantar reflex: flexor Gait: normal Sensory exam: no abnormal findings. No cerebellar signs elicited. Review of Relevant I have reviewed the following items bruno (where applicable) has been applied. Labs Laboratory Tests Test 12/31/16 09:50 12/31/16 10:40 12/31/16 17:08 12/31/16 20:54 White Blood Count 3.3 x10^3/uL (4.0-11.0) Red Blood Count 3.94 x10^6/uL (3.50-5.40) Hemoglobin 12.0 g/dL (12.0-15.5) Hematocrit 34.8 % (36.0-47.0) Mean Corpuscular Volume 88 fL (79-100) Mean Corpuscular Hemoglobin 30 pg (25-35) Mean Corpuscular Hemoglobin Concent 34 g/dL (31-37) Red Cell Distribution Width 14.5 % (11.5-14.5) Platelet Count 285 x10^3/uL (140-400) Neutrophils (%) (Auto) 40 % (31-73) Lymphocytes (%) (Auto) 49 % (24-48) Monocytes (%) (Auto) 8 % (0-9) Eosinophils (%) (Auto) 2 % (0-3) Basophils (%) (Auto) 1 % (0-3) Neutrophils # (Auto) 1.3 x10^3uL (1.8-7.7) Lymphocytes # (Auto) 1.6 x10^3/uL (1.0-4.8) Monocytes # (Auto) 0.3 x10^3/uL (0.0-1.1) Eosinophils # (Auto) 0.1 x10^3/uL (0.0-0.7) Basophils # (Auto) 0.0 x10^3/uL (0.0-0.2) Prothrombin Time 14.1 SEC (11.7-14.0) Prothromb Time International Ratio 1.2 (0.8-1.1) Activated Partial Thromboplast Time 29 SEC (24-38) Sodium Level 138 mmol/L (136-145) Potassium Level 3.3 mmol/L (3.5-5.1) Chloride Level 101 mmol/L (98-107) Carbon Dioxide Level 29 mmol/L (21-32) Anion Gap 8 (6-14) Blood Urea Nitrogen 14 mg/dL (7-20) Creatinine 0.6 mg/dL (0.6-1.0) Estimated GFR (Cockcroft-Gault) 117.6 BUN/Creatinine Ratio 23 (6-20) Glucose Level 123 mg/dL (70-99) Calcium Level 9.2 mg/dL (8.5-10.1) Magnesium Level 1.3 mg/dL (1.8-2.4) Total Bilirubin 0.8 mg/dL (0.2-1.0) Aspartate Amino Transf (AST/SGOT) 23 U/L (15-37) Alanine Aminotransferase (ALT/SGPT) 21 U/L (14-59) Alkaline Phosphatase 46 U/L (46-116) Creatine Kinase 68 U/L (26-192) Troponin I Quantitative < 0.017 ng/mL (0.000-0.055) JX-Obd-C-Type Natriuretic Peptide 59 pg/mL (0-449) Total Protein 8.5 g/dL (6.4-8.2) Albumin 3.9 g/dL (3.4-5.0) Albumin/Globulin Ratio 0.8 (1.0-1.7) Lipase 124 U/L (73-393) Thyroid Stimulating Hormone (TSH) 0.889 uIU/mL (0.358-3.74) Ethyl Alcohol Level < 10 mg/dL (0-10) Urine Collection Type Unknown Urine Color Yellow Urine Clarity Clear Urine pH 6.5 Urine Specific [place] 1.010 Urine Protein Negative mg/dL (NEG-TRACE) Urine Glucose (UA) Negative mg/dL (NEG) Urine Ketones (Stick) Negative mg/dL (NEG) Urine Blood Negative (NEG) Urine Nitrite Negative (NEG) Urine Bilirubin Negative (NEG) Urine Urobilinogen Dipstick 0.2 mg/dL (0.2 mg/dL) Urine Leukocyte Esterase Trace (NEG) Urine RBC 0 /HPF (0-2) Urine WBC 1-4 /HPF (0-4) Urine Squamous Epithelial Cells Occ /LPF Urine Bacteria Few /HPF (0-FEW) Urine Opiates Screen Neg (NEG) Urine Methadone Screen Neg (NEG) Urine Barbiturates Neg (NEG) Urine Phencyclidine Screen Neg (NEG) Urine Amphetamine/Methamphetamine Neg (NEG) Urine Benzodiazepines Screen Neg (NEG) Urine Cocaine Screen Neg (NEG) Urine Cannabinoids Screen Neg (NEG) Urine Ethyl Alcohol Neg (NEG) Glucose (Fingerstick) 129 mg/dL (70-99) 134 mg/dL (70-99) Test 01/01/17 03:48 01/01/17 07:13 White Blood Count 4.7 x10^3/uL (4.0-11.0) Red Blood Count 3.85 x10^6/uL (3.50-5.40) Hemoglobin 11.7 g/dL (12.0-15.5) Hematocrit 33.7 % (36.0-47.0) Mean Corpuscular Volume 88 fL (79-100) Mean Corpuscular Hemoglobin 31 pg (25-35) Mean Corpuscular Hemoglobin Concent 35 g/dL (31-37) Red Cell Distribution Width 14.2 % (11.5-14.5) Platelet Count 266 x10^3/uL (140-400) Neutrophils (%) (Auto) 49 % (31-73) Lymphocytes (%) (Auto) 40 % (24-48) Monocytes (%) (Auto) 9 % (0-9) Eosinophils (%) (Auto) 2 % (0-3) Basophils (%) (Auto) 0 % (0-3) Neutrophils # (Auto) 2.3 x10^3uL (1.8-7.7) Lymphocytes # (Auto) 1.9 x10^3/uL (1.0-4.8) Monocytes # (Auto) 0.4 x10^3/uL (0.0-1.1) Eosinophils # (Auto) 0.1 x10^3/uL (0.0-0.7) Basophils # (Auto) 0.0 x10^3/uL (0.0-0.2) Sodium Level 139 mmol/L (136-145) Potassium Level 3.7 mmol/L (3.5-5.1) Chloride Level 103 mmol/L (98-107) Carbon Dioxide Level 28 mmol/L (21-32) Anion Gap 8 (6-14) Blood Urea Nitrogen 14 mg/dL (7-20) Creatinine 0.7 mg/dL (0.6-1.0) Estimated GFR (Cockcroft-Gault) 98.4 Glucose Level 117 mg/dL (70-99) Calcium Level 8.6 mg/dL (8.5-10.1) Magnesium Level 1.7 mg/dL (1.8-2.4) Triglycerides Level 66 mg/dL (0-150) Cholesterol Level 155 mg/dL (0-200) LDL Cholesterol, Calculated 79 mg/dL (0-100) VLDL Cholesterol, Calculated 13 mg/dL (0-40) Non-HDL Cholesterol Calculated 92 mg/dL (0-129) HDL Cholesterol 63 mg/dL (40-60) Cholesterol/HDL Ratio 2.5 Glucose (Fingerstick) 99 mg/dL (70-99) Laboratory Tests Test 12/31/16 10:40 12/31/16 17:08 12/31/16 20:54 01/01/17 03:48 Urine Collection Type Unknown Urine Color Yellow Urine Clarity Clear Urine pH 6.5 Urine Specific [place] 1.010 Urine Protein Negative mg/dL (NEG-TRACE) Urine Glucose (UA) Negative mg/dL (NEG) Urine Ketones (Stick) Negative mg/dL (NEG) Urine Blood Negative (NEG) Urine Nitrite Negative (NEG) Urine Bilirubin Negative (NEG) Urine Urobilinogen Dipstick 0.2 mg/dL (0.2 mg/dL) Urine Leukocyte Esterase Trace (NEG) Urine RBC 0 /HPF (0-2) Urine WBC 1-4 /HPF (0-4) Urine Squamous Epithelial Cells Occ /LPF Urine Bacteria Few /HPF (0-FEW) Urine Opiates Screen Neg (NEG) Urine Methadone Screen Neg (NEG) Urine Barbiturates Neg (NEG) Urine Phencyclidine Screen Neg (NEG) Urine Amphetamine/Methamphetamine Neg (NEG) Urine Benzodiazepines Screen Neg (NEG) Urine Cocaine Screen Neg (NEG) Urine Cannabinoids Screen Neg (NEG) Urine Ethyl Alcohol Neg (NEG) Glucose (Fingerstick) 129 mg/dL (70-99) 134 mg/dL (70-99) White Blood Count 4.7 x10^3/uL (4.0-11.0) Red Blood Count 3.85 x10^6/uL (3.50-5.40) Hemoglobin 11.7 g/dL (12.0-15.5) Hematocrit 33.7 % (36.0-47.0) Mean Corpuscular Volume 88 fL (79-100) Mean Corpuscular Hemoglobin 31 pg (25-35) Mean Corpuscular Hemoglobin Concent 35 g/dL (31-37) Red Cell Distribution Width 14.2 % (11.5-14.5) Platelet Count 266 x10^3/uL (140-400) Neutrophils (%) (Auto) 49 % (31-73) Lymphocytes (%) (Auto) 40 % (24-48) Monocytes (%) (Auto) 9 % (0-9) Eosinophils (%) (Auto) 2 % (0-3) Basophils (%) (Auto) 0 % (0-3) Neutrophils # (Auto) 2.3 x10^3uL (1.8-7.7) Lymphocytes # (Auto) 1.9 x10^3/uL (1.0-4.8) Monocytes # (Auto) 0.4 x10^3/uL (0.0-1.1) Eosinophils # (Auto) 0.1 x10^3/uL (0.0-0.7) Basophils # (Auto) 0.0 x10^3/uL (0.0-0.2) Sodium Level 139 mmol/L (136-145) Potassium Level 3.7 mmol/L (3.5-5.1) Chloride Level 103 mmol/L (98-107) Carbon Dioxide Level 28 mmol/L (21-32) Anion Gap 8 (6-14) Blood Urea Nitrogen 14 mg/dL (7-20) Creatinine 0.7 mg/dL (0.6-1.0) Estimated GFR (Cockcroft-Gault) 98.4 Glucose Level 117 mg/dL (70-99) Calcium Level 8.6 mg/dL (8.5-10.1) Magnesium Level 1.7 mg/dL (1.8-2.4) Triglycerides Level 66 mg/dL (0-150) Cholesterol Level 155 mg/dL (0-200) LDL Cholesterol, Calculated 79 mg/dL (0-100) VLDL Cholesterol, Calculated 13 mg/dL (0-40) Non-HDL Cholesterol Calculated 92 mg/dL (0-129) HDL Cholesterol 63 mg/dL (40-60) Cholesterol/HDL Ratio 2.5 Test 01/01/17 07:13 Glucose (Fingerstick) 99 mg/dL (70-99) Medications Current Medications Ondansetron HCl (Zofran) 4 mg PRN Q8HRS PRN IV NAUSEA/VOMITING; Start 12/31/16 at 11:45; Stop 01/01/17 at 11:44 Atorvastatin Calcium (Lipitor) 10 mg QHS PO Last administered on 12/31/16 20: 34; Start 12/31/16 at 21:00 Vitamin D (Vitamin D3) 1,000 unit DAILY PO ; Start 01/01/17 at 09:00 Clopidogrel Bisulfate (Plavix) 75 mg DAILYWBKFT PO ; Start 01/01/17 at 08:00 Cyanocobalamin (Vitamin B-12) 1,000 mcg DAILY PO ; Start 01/01/17 at 09:00 Hydrochlorothiazide (Microzide) 12.5 mg DAILY PO ; Start 01/01/17 at 09:00 Metformin HCl (Glucophage) 500 mg BIDWMEALS PO ; Start 12/31/16 at 17:00 Calcium Carbonate/ Glycine (Oscal) 500 mg BIDAFTMEAL PO Last administered on 17:38; Start 12/31/16 at 18:00 Sodium Chloride (Normal Saline Flush) 3 ml QSHIFT PRN IV AFTER MEDS AND BLOOD DRAWS; Start 12/31/16 at 14:30 Sodium Chloride 1,000 ml @ 100 mls/hr Q10H IV Last administered on 01/01/17 05:39; Start 12/31/16 at 14:28 Labetalol HCl (Normodyne) 10 mg PRN Q10MIN PRN IV HYPERTENSION, SEE COMMENTS; Start 12/31/16 at 14:30 Acetaminophen (Tylenol) 650 mg PRN Q6HRS PRN PO FEVER; Start 12/31/16 at 14:30 Acetaminophen (Acetaminophen Supp) 650 mg PRN Q6HRS PRN [place] FEVER; Start at 14:30 Enoxaparin Sodium (Lovenox 40mg Syringe) 30 mg Q24H SQ ; Start 12/31/16 at 17:00 ; Stop 12/31/16 at 18:02; Status DC Magnesium Sulfate/ Dextrose 50 ml @ 25 mls/hr 1X ONCE IV Last administered on 12/31/16 17:36; Start 12/31/16 at 16:30; Stop 12/31/16 at 18:29; Status DC Potassium Chloride (Klor-Con) 40 meq 1X ONCE PO Last administered on 17:37; Start 12/31/16 at 16:00; Stop 12/31/16 at 16:05; Status DC Sodium Chloride (Normal Saline Flush) 10 ml QSHIFT PRN IV AFTER MEDS AND BLOOD DRAWS; Start 12/31/16 at 16:15 Lidocaine HCl (Xylocaine 2% Topical 5gm Tube) 1 aroldo 1X ONCE TP ; Start at 16:15; Stop 12/31/16 at 16:22; Status DC Lidocaine HCl (Viscous Lidocaine) 15 ml 1X ONCE MM ; Start 12/31/16 at 16:15; Stop 12/31/16 at 16:22; Status DC Benzocaine (Hurricaine One) 3 spray 1X ONCE MM ; Start 12/31/16 at 16:15; Stop 12/31/16 at 16:22; Status DC Enoxaparin Sodium (Lovenox 40mg Syringe) 40 mg Q24H SQ Last administered on 18:12; Start 12/31/16 at 19:00 Magnesium Chloride (Mag Delay) 64 mg DAILY PO ; Start 01/01/17 at 09:00; Stop at 09:00; Status DC Magnesium Chloride (Mag Delay) 64 mg DAILY@1300 PO ; Start 01/01/17 at 13:00 Active Scripts Active Plavix (Clopidogrel Bisulfate) 75 Mg Tablet 75 Mg PO DAILYWBKFT 30 Days Reported Vitamin D3 (Cholecalciferol (Vitamin D3)) 1,000 Unit Tablet 1 Tab PO DAILY Vitamin B-12 (Cyanocobalamin (Vitamin B-12)) 1,000 Mcg Tablet 1 Tab PO DAILY Calcium (Calcium Carbonate) 600 Mg Tablet 600 Mg PO BID Metformin Hcl 500 Mg Tablet 1 Tab PO BID Hydrochlorothiazide Capsule (Hydrochlorothiazide) 12.5 Mg Capsule 1 Cap PO DAILY Atorvastatin Calcium 10 Mg Tablet 1 Tab PO DAILY Vitals/I & O Vital Sign - Last 24 Hours 12/31/16 12/31/16 12/31/16 12/31/16 10:18 10:23 10:38 11:08 Pulse 90 86 86 90 Resp 20 19 B/P (MAP) 144/98 (113) 138/92 (107) 144/98 (113) 146/100 (115) Pulse Ox 96 95 95 96 O2 Delivery Room Air Room Air Room Air Room Air 12/31/16 12/31/16 12/31/16 12/31/16 11:38 12:27 13:27 14:27 Pulse 91 95 88 83 Resp 20 17 B/P (MAP) 148/100 (116) 149/101 (117) 139/91 (107) 129/83 (98) Pulse Ox 98 98 96 96 O2 Delivery Room Air Room Air Room Air Room Air 12/31/16 12/31/16 12/31/16 12/31/16 15:53 15:55 19:53 23:34 Temp 97.5 97.5 97.7 97.6 97.5 97.5 97.7 97.6 Pulse 73 73 97 71 Resp 18 18 20 B/P (MAP) 161/110 (127) 161/110 (127) 134/81 (98) 155/91 (112) Pulse Ox 90 90 95 98 O2 Delivery Room Air Room Air Room Air Room Air 01/01/17 01/01/17 01/01/17 03:20 07:08 07:47 Temp 98.6 97.8 98.6 97.8 Pulse 75 84 Resp 17 B/P (MAP) 130/87 (101) 141/92 (108) Pulse Ox 96 98 O2 Delivery Room Air Room Air Room Air Intake and Output 12/31/16 12/31/16 01/01/17 15:00 23:00 07:00 Intake Total 200 ml 180 ml Balance 200 ml 180 ml FRANCISCO PATINO MD January 01, 2017 10:07
[2017-01-01] MEDS ORDERED: BENZOCAINE ONE 20% MUCOSAL SPRAY. (10:10)
[2017-01-01] MEDS ORDERED: LIDOCAINE 2% VISCOUS 15 ML SOLUTION. ONE (10:10)
[2017-01-01] MEDS ORDERED: LIDOCAINE 2% TOPICAL JELLY 30GM TUBE. TP ONE ×2 (10:11→11:00)
[2017-01-01] MEDS ORDERED: IV RINGERS,LACTATED 1000ML 1,000 ML IV SCH (10:34)
[2017-01-01] MEDS ORDERED: fentaNYL PF VIAL 100 MCG/2 ML VIAL IV PRN ×2 (10:45)
[2017-01-01] MEDS ORDERED: LIDOCAINE 1% 1 ML SYRINGE. ID PRN (10:45)
[2017-01-01] MEDS ORDERED: PROCHLORPERAZINE 10 MG/2 ML VIAL. IV PRN (10:45)
[2017-01-01] MEDS ORDERED: ONDANSETRON PF 4 MG/2 ML VIAL. IV PRN (10:45)
[2017-01-01] MEDS ORDERED: PROPOFOL 40 ML IV ONE (10:56)
--- NOTE | 2017-01-01 11:06 | HP ---
ADMIT DATE: 12/31/2016 CHIEF COMPLAINT: Visual change. HISTORY OF PRESENT ILLNESS: The patient is a 76-year-old female with a history of a left occipital stroke 2 years ago. She presented to the Emergency Room reporting the onset of intermittent visual change that started on the day of admission. Her vision would become blurry, but would then improve. She had no weakness, facial droop, cognitive change, etc. Initial evaluation in the Emergency Room was unremarkable. A CT of the head without contrast did not show any acute changes and she was admitted for further treatment. PAST MEDICAL HISTORY: Left occipital CVA in 2015, hypertension, hyperlipidemia, diabetes mellitus type 2. PAST SURGICAL HISTORY: Left knee surgery, tonsillectomy, cholecystectomy. ALLERGIES: THE PATIENT IS ALLERGIC TO ANTIHISTAMINES. HOME MEDICATIONS: Atorvastatin 10 mg every other day, calcium 600 mg b.i.d., Plavix 75 mg daily, vitamin B12 one tablet daily, hydrochlorothiazide 12.5 mg daily, metformin 500 mg b.i.d. FAMILY HISTORY: Noncontributory. SOCIAL HISTORY: The patient is and lives at home with her . She does not smoke cigarettes or drink alcohol to excess. REVIEW OF SYSTEMS: The patient states she was feeling fine prior to the onset of these symptoms. She denies other episodes of visual change. She denies chest pain or palpitations. She denies lightheadedness. She denies cough or shortness of breath. She denies abdominal pain, nausea or vomiting. She denies lower extremity edema. She has been taking her medications daily and maintaining her usual active schedule including playing bridge and taking care of her elderly mother. PHYSICAL EXAMINATION: GENERAL: The patient is alert and oriented x 3, resting comfortably in bed in no acute distress. HEENT: PERRL, EOMI, sclerae clear. Oropharynx: Mucous membranes moist. NECK: Supple, without lymphadenopathy. CHEST: Clear to auscultation. CARDIOVASCULAR: Regular rhythm without murmur. ABDOMEN: Soft, nontender, normoactive bowel sounds present. EXTREMITIES: Without edema. NEUROLOGY: There is no focal neurologic change. ASSESSMENT AND PLAN: 1. Acute cerebrovascular accident. MRI at admission did show very small area of acute infarct in the right occipital lobe. The patient's visual changes resolved yesterday and have not recurred. The patient has been seen in consultation by Neurology and Cardiology. She had a thorough evaluation with her previous cerebrovascular accident, which did not show any significant abnormalities, so Dr. Smiley does not recommend repeating any of those at this time. Cardiology recommends a transesophageal echocardiogram and an outpatient loop recorder to follow for possible cardiac arrhythmias, which could be the cause of an embolic cerebrovascular accident. The patient will have this done today. 2. Hypertension. This is usually well controlled with hydrochlorothiazide. We will continue this. 3. Diabetes mellitus type 2. This has been well controlled with metformin, continue this. 4. Hyperlipidemia. The patient is very close to her goal with a total cholesterol of 155, an LDL of 79, HDL is 63. She is presently taking the atorvastatin every other day. This can be increased to daily if recommended by her consultants. She does tolerate it without problems. 5. Hypomagnesemia. The patient's magnesium was significantly low at 1.3 at admission and will start daily oral replacement for this and follow as an outpatient. ADAM STILES MD DR: NIMA/ashwini JOB#: [id number] / [id number] [facility]
[2017-01-01 11:59] VITALS: BP 137/83
--- NOTE | 2017-01-01 13:51 | CARD ---
APPROVED REPORT EXAM: Transesophageal echocardiogram with color flow Doppler. INDICATION CVA/TIA Reason For Test : Rule out cardiac source of emboli. PROCEDURE After obtaining informed consent, patient underwent transesophageal echo in the Echo Lab.PACU. Type of Sedation : Conscious Sedation Sedation was provided by anesthesiologist, see EMR for medications administered. Transesophageal probe was inserted and advanced into esophagus by Edilberto Ventura MD. The PHIL was performed without complications. Throughout the procedure, the blood pressure, pulse oximetry, cardiac rhythm, and rate were monitored . The patient tolerated the procedure without adverse effects. Recovery from conscious sedation was une ventful and vital signs were stable. LEFT VENTRICLE The left ventricle is normal size. There is normal left ventricular wall thickness. The left ventricu lar systolic function is normal and the ejection fraction is within normal range. The Ejection Fracti on is 55-60%. There is normal LV segmental wall motion. RIGHT VENTRICLE The right ventricle is normal size. The right ventricular systolic function is normal. ATRIA The left atrium size is normal. The right atrium size is normal. The interatrial septum is intact wit h no evidence for an atrial septal defect or patent foramen ovale as noted on 2-D or Doppler imaging. There is no thrombus noted in the left atrial appendage with normal velocities. AORTIC VALVE The aortic valve is normal in structure and function. Doppler and Color Flow revealed no significant aortic regurgitation. There is no significant aortic valvular stenosis. MITRAL VALVE The mitral valve is normal in structure and function. There is no evidence of mitral valve prolapse. There is no mitral valve stenosis. Doppler and Color-flow revealed trace to mild mitral regurgitation . TRICUSPID VALVE The tricuspid valve is normal in structure and function. Doppler and Color Flow revealed mild tricusp id regurgitation. There is no tricuspid valve stenosis. PULMONIC VALVE The pulmonary valve is normal in structure and function. Doppler and Color Flow revealed no pulmonic valvular regurgitation. There is no pulmonic valvular stenosis. GREAT VESSELS The aortic root is normal in size. The ascending aorta is normal in size. The IVC is normal in size a nd collapses >50% with inspiration. Critical Notification Critical Value: No <Conclusion> The left ventricular systolic function is normal and the ejection fraction is within normal range. Th e Ejection Fraction is 55-60%. There is no thrombus noted in the left atrial appendage with normal velocities. No significant valvular lesions.
[2017-01-01] MEDS ORDERED: Magnesium Chloride Er PO (14:19)
--- NOTE | 2017-01-02 20:20 | DS ---
DATE OF DISCHARGE: 01/01/2017 CHIEF COMPLAINT: Visual change. HISTORY OF PRESENT ILLNESS: The patient is a 76-year-old female with history of a left occipital stroke 2 years ago. She presented to the Emergency Room reporting the onset of intermittent visual change that started on the day of admission. Her vision would become blurry, but would then improve. She had no weakness, facial droop, cognitive change, etc. Initial evaluation in the Emergency Room was unremarkable. A CT of the head without contrast did not show any acute changes and she was admitted for further treatment. HOSPITAL COURSE: The patient was admitted and seen in consultation by Neurology and Cardiology. An MRI of the brain showed a small amount of acute infarction in the right occipital lobe. The patient had a CVA workup 2 years ago at the time of her first stroke, which was unremarkable. Therefore, Dr. Smiley did not feel that those tests need to be repeated, but he did consult Cardiology and recommend PHIL and an outpatient loop recorder for further evaluation. The patient was in agreement with this and underwent a PHIL on 01/01/2017. The transesophageal echocardiogram showed normal left ventricular systolic function, ejection fraction of 55-60% and no thrombus seen. The patient's visual disturbance was much improved by the time of discharge. She had no other focal neurologic deficits. Lab showed a significantly low magnesium level initially of 1.3. She was started on replacement for this and this will be continued as an outpatient. The patient has been taking atorvastatin every other day for quite some time. Her total cholesterol of 155, her LDL of 79 and her HDL of 63. Since the LDL is slightly above goal and since she has had another CVA, we will increase her atorvastatin dose to 10 mg daily. The patient's other home medications were left unchanged. Her hypertension has been well controlled with her usual medication and her diabetes has been well controlled with metformin. She was discharged to home on 01/01/2017 after uneventful recovery from her PHIL. Patient's insurance would not cover an implanted loop recorder, so she will be set up on a 30 day Holter monitor as an outpatient. Dr. Smiley recommended continuing the patient on Plavix daily, which she had been on previously. He did not recommend adding aspirin at this time. FINAL DIAGNOSES: 1. Acute right occipital cerebrovascular accident. 2. Hypertension. 3. Diabetes mellitus type 2. 4. Hyperlipidemia. 5. Hypomagnesemia. DISCHARGE MEDICATIONS: Atorvastatin 10 mg daily, magnesium chloride ER 64 mg one daily, Plavix 75 mg daily, hydrochlorothiazide 12.5 mg daily, metformin 500 mg b.i.d. Follow up with Dr. Knapp within 2 weeks. Follow up with Dr. Bahena and Dr. Ventura within 1 month. ADAM KNAPP MD DR: NIMA/ashwini JOB#: [id number] / [id number] [facility]
== END 2017-01-01 14:50 | disposition home or self-care (01) | DRG 66 ==
LOC: ER 09:23 → ED HOLD 12:04 → 6 SOUTH 14:44
PROVIDERS: ADMIT Family Medicine; ATTEND Family Medicine
DX: I63.9 Cerebral infarction, unspecified (principal); I10 Essential (primary) hypertension; F17.210 Nicotine dependence, cigarettes, uncomplicated; E87.6 Hypokalemia; E83.42 Hypomagnesemia; E78.5 Hyperlipidemia, unspecified; E78.00 Pure hypercholesterolemia, unspecified; J30.2 Other seasonal allergic rhinitis; E11.9 Type 2 diabetes mellitus without complications; Z82.49 Family history of ischemic heart disease and other diseases of the circulatory system; Z86.73 Personal history of transient ischemic attack (TIA), and cerebral infarction without residual deficits; Z88.5 Allergy status to narcotic agent; Z88.8 Allergy status to other drugs, medicaments and biological substances; Z98.49 Cataract extraction status, unspecified eye; Z90.49 Acquired absence of other specified parts of digestive tract; Z90.89 Acquired absence of other organs
CPT/HCPCS: 36415; 70450; 70551; 71010; 80048; 80053; 80061; 81001; 82550; 82947; 83690; 83735; 83880; 84443; 84484; 85027; 85610; 85730; 87086; 93005; 93312; 93325; G0480; G0481; J1650; J2704; J7030; J7060; J7120; 99285-25

== ENCOUNTER 2017-12-28 10:17 | Emergency (ER) | payer MEDICARE | END 2017-12-28 12:06 | disposition home or self-care (01) | LOC: ER 10:17 | DX: S92.512A Displaced fracture of proximal phalanx of left lesser toe(s), initial encounter for closed fracture (principal); E11.9 Type 2 diabetes mellitus without complications; I10 Essential (primary) hypertension; E78.00 Pure hypercholesterolemia, unspecified; Z86.73 Personal history of transient ischemic attack (TIA), and cerebral infarction without residual deficits; Z88.5 Allergy status to narcotic agent; Z88.8 Allergy status to other drugs, medicaments and biological substances; X58.XXXA Exposure to other specified factors, initial encounter; Y93.89 Activity, other specified; Y99.8 Other external cause status; Y92.89 Other specified places as the place of occurrence of the external cause | CPT/HCPCS: 73620; 99284 ==

== ENCOUNTER 2018-11-15 22:19 | Emergency (ER) | payer MEDICARE ==
[~2018-11-15] VITALS: Ht 154.9 cm; Wt 63.5 kg
[~2018-11-15 22:19] MED LIST changes: -ASPI325T4 PO; +ASPI325T8 PO; -CLOP75TA27 PO; +CLOP75TA57 PO; -HYDR12.53 PO; +HYDR12.575 PO; +METF500T16 PO; -METF500T4 PO; +Magnesium Chloride Er PO; +PRED20TA PO
[2018-11-16] MEDS ORDERED: ONDANSETRON PF 4 MG/2 ML VIAL. ONE (00:07)
[2018-11-16] MEDS ORDERED: fentaNYL PF VIAL 100 MCG/2 ML VIAL ONE (00:07)
--- NOTE | 2018-11-16 00:08 | PHYS DOC ---
Past Medical History Past Medical History: CVA, Diabetes-Type II, High Cholesterol, Hypertension, TIA, Other Additional Past Medical Histor: seasonal allergies,BELLS PALSEY (MARILY STALLWORTH APRN) Past Surgical History: Cholecystectomy, Tonsillectomy, Other Additional Past Surgical Histo: left knee surgery (MARILY STALLWORTH APRN) Alcohol Use: None Drug Use: None (MARILY STALLWORTH APRN) Adult General Chief Complaint Chief Complaint: BACK PAIN OR INJURY HPI HPI 78-year-old female presents to ER with complaints of right lower back pain which started around 2:30 today. Patient denies any injury or falls. She reports she has had nausea and has felt like she had indigestion denying any vomiting episodes. Patient denies chest pain or palpitations. She denies feeling short of air. She reports she has been urinating without symptoms. Denies any OTC meds for pain. She denies any recent illness. (MARILY STALLWORTH APRN) Review of Systems Review of Systems Constitutional: Denies fever or chills [] Eyes: Denies change in visual acuity, redness, or eye pain [] HENT: Denies nasal congestion or sore throat [] Respiratory: Denies cough or shortness of breath [] Cardiovascular: Denies CP/palpitations GI: Denies abdominal pain, vomiting, bloody stools or diarrhea. Reports intermittent nausea w/onset of rt lower back pain- reports feels like "indigestion" : Denies dysuria or hematuria [] Musculoskeletal: Denies joint pain. Reports rt lower back- denies radiation of pain into buttock/extremities. Reports chronic bilat. lower extremity edema- denies acute changes Integument: Denies rash or skin lesions [] Neurologic: Denies headache, focal weakness or sensory changes [] Endocrine: Denies polyuria or polydipsia [] All other systems were reviewed and found to be within normal limits, except as documented in this note. (MARILY STALLWORTH APRN) Current Medications Current Medications Current Medications Medications (Trade) Dose Ordered Sig/Carmen Start Time Stop Time Status Last Admin Dose Admin Ceftriaxone Sodium (Rocephin) 1 gm 1X ONCE 11/16/18 02:00 11/16/18 02:01 DC 11/16/18 01:53 1 GM Fentanyl Citrate (Fentanyl 2ml Vial) 100 mcg STK-MED ONCE 11/16/18 00:07 11/16/18 00:09 DC Ondansetron HCl (Zofran) 4 mg STK-MED ONCE 11/16/18 00:07 11/16/18 00:08 DC Sodium Chloride 500 ml @ 500 mls/hr 1X ONCE 11/16/18 00:30 11/16/18 01:29 DC 11/16/18 00:11 500 MLS/HR (ZAN MURPHY DO) Allergies Allergies Allergies Coded Allergies Type Severity Reaction Last Updated Verified Antihistamines - Alkylamine Adverse Reaction Intermediate PALPITATIONS Yes Antihistamines - Ethanolamine Adverse Reaction Intermediate PALPITATIONS Yes Antihistamines - Ethylenediamine Adverse Reaction Intermediate PALPITATIONS Yes Antihistamines - Piperazine Adverse Reaction Intermediate PALPITATIONS Yes Antihistamines - Piperidine Adverse Reaction Intermediate PALPITATIONS Yes codeine Adverse Reaction Intermediate nausea 11/16/18 Yes ibuprofen Adverse Reaction Intermediate "increased heart rate" 11/16/18 Yes (ZAN MURPHY DO) Physical Exam Physical Exam Constitutional: Well developed, well nourished, no acute distress, non-toxic appearance. [] HENT: Normocephalic, atraumatic, bilateral external ears normal, oropharynx moist, no oral exudates, nose normal. [] Eyes: PERRLA, EOMI, conjunctiva normal, no discharge. [] Neck: Normal range of motion, no tenderness, supple, no stridor. [] Cardiovascular:Heart rate regular rhythm, no murmur [] Lungs & Thorax: Bilateral breath sounds clear to auscultation [] Abdomen: Bowel sounds normal, soft, no tenderness, no masses, no pulsatile masses. [] Skin: Warm, dry, no erythema, no rash. [] Back: No tenderness, no CVA tenderness. [] Extremities: No tenderness, no cyanosis, no clubbing, ROM intact, no edema. [] Neurologic: Alert and oriented X 3, normal motor function, normal sensory function, no focal deficits noted. [] Psychologic: Affect normal, judgement normal, mood normal. [] (MAGNOLIATMARILY APRN) Current Patient Data Vital Signs Vital Signs Date Time Temp Pulse Resp B/P (MAP) Pulse Ox O2 Delivery O2 Flow Rate FiO2 11/16/18 01:54 78 12 123/68 (86) 97 Room Air 11/15/18 22:50 97.7 97.7 (ZAN MURPHY DO) Lab Values Laboratory Tests Test 11/16/18 00:01 11/16/18 00:42 White Blood Count 5.7 x10^3/uL (4.0-11.0) Red Blood Count 3.90 x10^6/uL (3.50-5.40) Hemoglobin 11.7 g/dL (12.0-15.5) L Hematocrit 35.4 % (36.0-47.0) L Mean Corpuscular Volume 91 fL (79-100) Mean Corpuscular Hemoglobin 30 pg (25-35) Mean Corpuscular Hemoglobin Concent 33 g/dL (31-37) Red Cell Distribution Width 14.4 % (11.5-14.5) Platelet Count 269 x10^3/uL (140-400) Neutrophils (%) (Auto) 71 % (31-73) Lymphocytes (%) (Auto) 22 % (24-48) L Monocytes (%) (Auto) 6 % (0-9) Eosinophils (%) (Auto) 1 % (0-3) Basophils (%) (Auto) 0 % (0-3) Neutrophils # (Auto) 4.0 x10^3uL (1.8-7.7) Lymphocytes # (Auto) 1.3 x10^3/uL (1.0-4.8) Monocytes # (Auto) 0.3 x10^3/uL (0.0-1.1) Eosinophils # (Auto) 0.0 x10^3/uL (0.0-0.7) Basophils # (Auto) 0.0 x10^3/uL (0.0-0.2) Sodium Level 135 mmol/L (136-145) L Potassium Level 3.3 mmol/L (3.5-5.1) L Chloride Level 98 mmol/L (98-107) Carbon Dioxide Level 28 mmol/L (21-32) Anion Gap 9 (6-14) Blood Urea Nitrogen 16 mg/dL (7-20) Creatinine 0.6 mg/dL (0.6-1.0) Estimated GFR (Cockcroft-Gault) 117.0 BUN/Creatinine Ratio 27 (6-20) H Glucose Level 152 mg/dL (70-99) H Calcium Level 9.1 mg/dL (8.5-10.1) Total Bilirubin 0.4 mg/dL (0.2-1.0) Aspartate Amino Transferase (AST) 28 U/L (15-37) Alanine Aminotransferase (ALT) 24 U/L (14-59) Alkaline Phosphatase 52 U/L (46-116) Troponin I Quantitative < 0.017 ng/mL (0.000-0.055) Total Protein 8.9 g/dL (6.4-8.2) H Albumin 3.5 g/dL (3.4-5.0) Albumin/Globulin Ratio 0.6 (1.0-1.7) L Urine Collection Type Unknown Urine Color Yellow Urine Clarity Clear Urine pH 5.5 Urine Specific [place] 1.020 Urine Protein Negative mg/dL (NEG-TRACE) Urine Glucose (UA) Negative mg/dL (NEG) Urine Ketones (Stick) 15 mg/dL (NEG) Urine Blood Negative (NEG) Urine Nitrite Negative (NEG) Urine Bilirubin Negative (NEG) Urine Urobilinogen Dipstick 0.2 mg/dL (0.2 mg/dL) Urine Leukocyte Esterase Small (NEG) Urine RBC Occ /HPF (0-2) Urine WBC 5-10 /HPF (0-4) Urine Squamous Epithelial Cells Occ /LPF Urine Bacteria 0 /HPF (0-FEW) Urine Mucus Mod /LPF Laboratory Tests 11/16/18 00:01 Laboratory Tests 11/16/18 00:01 (ZAN MURPHY DO) Lab Values Laboratory Tests Test 11/16/18 00:01 White Blood Count 5.7 x10^3/uL (4.0-11.0) Red Blood Count 3.90 x10^6/uL (3.50-5.40) Hemoglobin 11.7 g/dL (12.0-15.5) L Hematocrit 35.4 % (36.0-47.0) L Mean Corpuscular Volume 91 fL (79-100) Mean Corpuscular Hemoglobin 30 pg (25-35) Mean Corpuscular Hemoglobin Concent 33 g/dL (31-37) Red Cell Distribution Width 14.4 % (11.5-14.5) Platelet Count 269 x10^3/uL (140-400) Neutrophils (%) (Auto) 71 % (31-73) Lymphocytes (%) (Auto) 22 % (24-48) L Monocytes (%) (Auto) 6 % (0-9) Eosinophils (%) (Auto) 1 % (0-3) Basophils (%) (Auto) 0 % (0-3) Neutrophils # (Auto) 4.0 x10^3uL (1.8-7.7) Lymphocytes # (Auto) 1.3 x10^3/uL (1.0-4.8) Monocytes # (Auto) 0.3 x10^3/uL (0.0-1.1) Eosinophils # (Auto) 0.0 x10^3/uL (0.0-0.7) Basophils # (Auto) 0.0 x10^3/uL (0.0-0.2) Sodium Level 135 mmol/L (136-145) L Potassium Level 3.3 mmol/L (3.5-5.1) L Chloride Level 98 mmol/L (98-107) Carbon Dioxide Level 28 mmol/L (21-32) Anion Gap 9 (6-14) Blood Urea Nitrogen 16 mg/dL (7-20) Creatinine 0.6 mg/dL (0.6-1.0) Estimated GFR (Cockcroft-Gault) 117.0 BUN/Creatinine Ratio 27 (6-20) H Glucose Level 152 mg/dL (70-99) H Calcium Level 9.1 mg/dL (8.5-10.1) Total Bilirubin 0.4 mg/dL (0.2-1.0) Aspartate Amino Transferase (AST) 28 U/L (15-37) Alanine Aminotransferase (ALT) 24 U/L (14-59) Alkaline Phosphatase 52 U/L (46-116) Troponin I Quantitative < 0.017 ng/mL (0.000-0.055) Total Protein 8.9 g/dL (6.4-8.2) H Albumin 3.5 g/dL (3.4-5.0) Albumin/Globulin Ratio 0.6 (1.0-1.7) L Laboratory Tests 11/16/18 00:01 Laboratory Tests 11/16/18 00:01 (MARILY STALLWORTH APRN) EKG EKG EKG obtained 11/16/18 at [address] Murphy Sinus rhythm Ltward axis Incomplete rt BBB Rate 73 No STEMI (MARILY STALLWORTH APRN) Radiology/Procedures Radiology/Procedures [] (MARILY STALLWORTH APRN) Radiology/Procedures [facility] [address] [place] [address] IMAGING REPORT Signed PATIENT: ANNABEL RAMOS ACCOUNT: [id number] : 1940 LOCATION: ER AGE: 78 SEX: F EXAM STATUS: REG ER ORD. PHYSICIAN: MARILY STALLWORTH APRN REASON: rt flank pain hx stones PROCEDURE: CT ABDOMEN PELVIS WO CONTRAST Abdominal and Pelvis CT, Without Contrast: History: Right flank pain and history of renal stones. Comparison: None. Procedure: Axial images are obtained of the abdomen and pelvis, without IV or oral contrast. CT Abdomen without Contrast: Findings: Evaluation of solid organs is limited without contrast. Evaluation of stomach and bowel is limited without oral contrast. Liver: Normal. Spleen: Normal. Pancreas: Normal. Adrenal Glands: Normal. Kidneys: Normal. There is no free air or free fluid. There is no lymphadenopathy. Impression: Please see CT Pelvis without Contrast. End Impression. CT Pelvis without Contrast: Findings: The urinary bladder appears normal. There is no free fluid. There is no lymphadenopathy. There is no pericolonic inflammation identified. The appendix is not well seen. This fibroid changes in the uterus. 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 Impression: Small nonobstructive stones the renal pelvises bilaterally. No acute findings. End impression PQRS Compliance Statement: One or more of the following individualized dose reduction techniques were utilized for this examination: 1. Automated exposure control 2. Adjustment of the mA and/or kV according to patient size 3. Use of iterative reconstruction technique Electronically signed by: Kayleigh Hills III, MD (11/16/2018 1:41 AM) [facility] DICTATED and SIGNED BY: KAYLEIGH HILLS III, MD DATE: 11/16/18 0141 (ZAN MURPHY DO) Course & Med Decision Making Course & Med Decision Making Pertinent Labs and Imaging studies reviewed. (See chart for details) 1300: On reevaluation patient reports pain medicine has improved her pain. She is denying any nausea at this time. Patient received 500 mL of IV fluids and is up to bathroom with RN to obtain urine specimen as initial specimen was accidentally discarded. Will obtain CT abdomen and pelvis to further rule out acute process as patient reports history of kidney stones and was having sudden onset of right lower back pain. Discussed test results with patient and her son with the EKG showing no acute ST elevation or STEMI and troponin was <0.017. H& H similar to patient's previous records. Discussed pt's case with Dr. Murphy who will assume pt's care and disposition. (MARILY STALLWORTH APRN) Course & Med Decision Making Patient felt much better, slept in room (ZAN MURPHY DO) Dragon Disclaimer Dragon Disclaimer This electronic medical record was generated, in whole or in part, using a voice recognition dictation system. (MARILY STALLWORTH APRN) Departure Departure Impression: Primary Impression: UTI (urinary tract infection) Additional Impression: Flank pain Disposition: HOME, SELF-CARE Condition: IMPROVED Referrals: ADAM STILES MD (PCP) follow up with your doctor on Saturday Patient Instructions: Flank Pain, Urinary Tract Infection Scripts Ciprofloxacin Hcl (CIPRO) 500 Mg Tablet 1 TAB PO BID, #10 TAB Prov: ZAN MURPHY DO 11/16/18 Hydrocodone/Apap 5-325 (NORCO 5-325 TABLET) 1 Each Tablet 1 TAB PO PRN Q6HRS PRN for PAIN for 3 Days, #12 TAB 0 Refills Prov: ZAN MURPHY DO 11/16/18 Problem Qualifiers MARILY STALLWORTH APRN Nov 16, 2018 00:08 ZAN MURPHY DO Nov 16, 2018 01:49
[2018-11-16 00:11] LABS: BASO % 0 % (0-3); EOS % 1 % (0-3); HEMATOCRIT 35.4 % (36.0-47.0); HEMOGLOBIN 11.7 g/dL (12.0-15.5); LYMPH # 1.3 x10^3/uL (1.0-4.8); LYMPH % 22 % (24-48); MEAN CORPUSCULAR HEMOGLOBIN 30 pg (25-35); MEAN CORPUSCULAR HGB CONC 33 g/dL (31-37); MEAN CORPUSCULAR VOLUME 91 fL (79-100); MONO # 0.3 x10^3/uL (0.0-1.1); MONO % 6 % (0-9); NEUT % 71 % (31-73); PLATELET COUNT 269 x10^3/uL (140-400); RED CELL DISTRIBUTION WIDTH 14.4 % (11.5-14.5); WHITE BLOOD COUNT 5.7 x10^3/uL (4.0-11.0)
[2018-11-16 00:24] LABS: CALCIUM 9.1 mg/dL (8.5-10.1); CREATININE 0.6 mg/dL (0.6-1.0); POTASSIUM 3.3 mmol/L (3.5-5.1)
[2018-11-16 00:29] LABS: ALBUMIN 3.5 g/dL (3.4-5.0); ALBUMIN/GLOBULIN RATIO 0.6 (1.0-1.7); TOTAL BILIRUBIN 0.4 mg/dL (0.2-1.0); TOTAL PROTEIN 8.9 g/dL (6.4-8.2)
[2018-11-16] MEDS ORDERED: fentaNYL PF VIAL 100 MCG/2 ML VIAL IV ONE (00:30)
[2018-11-16] MEDS ORDERED: IV NORMAL SALINE 500ML BAG 500 ML IV ONE (00:30)
[2018-11-16] MEDS ORDERED: ONDANSETRON PF 4 MG/2 ML VIAL. IV ONE (00:30)
[2018-11-16 01:01] LABS: BILIRUBIN,URINE NEGATIVE (NEG); CLARITY,URINE CLEAR; COLOR,URINE YELLOW; NITRITE,URINE NEGATIVE (NEG); PH,URINE 5.5; PROTEIN,URINE NEGATIVE (NEG-TRACE); UROBILINOGEN,URINE 0.2 mg/dL (0.2 mg/dL)
[2018-11-16 01:06] LABS: BACTERIA,URINE 0 /HPF (0-FEW); RBC,URINE OCC /HPF (0-2)
[2018-11-16 01:07] LABS: SQUAMOUS EPITHELIAL CELL,UR OCC /LPF
--- NOTE | 2018-11-16 01:44 | RAD ---
Abdominal and Pelvis CT, Without Contrast: History: Right flank pain and history of renal stones. Comparison: None. Procedure: Axial images are obtained of the abdomen and pelvis, without IV or oral contrast. CT Abdomen without Contrast: Findings: Evaluation of solid organs is limited without contrast. Evaluation of stomach and bowel is limited without oral contrast. Liver: Normal. Spleen: Normal. Pancreas: Normal. Adrenal Glands: Normal. Kidneys: Normal. There is no free air or free fluid. There is no lymphadenopathy. Impression: Please see CT Pelvis without Contrast. End Impression. CT Pelvis without Contrast: Findings: The urinary bladder appears normal. There is no free fluid. There is no lymphadenopathy. There is no pericolonic inflammation identified. The appendix is not well seen. This fibroid changes in the uterus. 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 Impression: Small nonobstructive stones the renal pelvises bilaterally. No acute findings. End impression PQRS Compliance Statement: One or more of the following individualized dose reduction techniques were utilized for this examination: 1. Automated exposure control 2. Adjustment of the mA and/or kV according to patient size 3. Use of iterative reconstruction technique Electronically signed by: Jose Rodriguez III, MD (11/16/2018 1:41 AM) [facility]
[2018-11-16] MEDS ORDERED: cefTRIAXone IV Push 1 GM VIAL. IVP ONE (02:00)
[2018-11-16 02:40] VITALS: BP 151/92
[2018-11-16] MEDS ORDERED: HYDR-3164 PO (02:41)
[2018-11-16] MEDS ORDERED: CIPR500T94 PO (02:41)
--- NOTE | 2018-11-16 09:43 | EKG ---
[facility] [address] [place] [address] Test Date: 2018-11-16 Test Time: 00:19:43 Pat Name: ANNABEL RAMOS Department: Room: Gender: F Purchasing Officer: : 1940 Requested By: MARILY STALLWORTH Order Number: [id number] Reading MD: Efe Ventura MD Measurements Intervals [place] Rate: 72 P: -89 SC: 160 QRS: -5 QRSD: 94 T: 13 QT: 476 QTc: 528 Interpretive Statements SINUS RHYTHM NON-SPECIFIC ST/T CHANGES PROLONGED QT Electronically Signed On 11-17-2018 14:36:24 CDT by Efe Ventura MD
== END 2018-11-16 02:58 | disposition home or self-care (01) ==
LOC: ER 22:19
DX: N39.0 Urinary tract infection, site not specified (principal); E78.00 Pure hypercholesterolemia, unspecified; E11.9 Type 2 diabetes mellitus without complications; I10 Essential (primary) hypertension; Z86.73 Personal history of transient ischemic attack (TIA), and cerebral infarction without residual deficits; Z90.49 Acquired absence of other specified parts of digestive tract; Z88.5 Allergy status to narcotic agent; Z88.6 Allergy status to analgesic agent; Z88.8 Allergy status to other drugs, medicaments and biological substances
CPT/HCPCS: 36415; 74176; 80053; 81001; 84484; 85025; 87086; 93005; 96374; 96375; 99284; J0696; J2405; J3010; J7040

== ENCOUNTER 2018-12-02 22:20 | Emergency (ER) | payer MEDICARE ==
[~2018-12-02] VITALS: Ht 154.9 cm; Wt 65.8 kg
[~2018-12-02 22:20] MED LIST changes: +CIPR500T94 PO; +HYDR-3164 PO
[2018-12-02 22:30] VITALS: BP 166/85
--- NOTE | 2018-12-02 22:43 | PHYS DOC ---
Past Medical History Past Medical History: CVA, Diabetes-Type II, High Cholesterol, Hypertension, TIA, Other Additional Past Medical Histor: seasonal allergies,BELLS PALSEY Past Surgical History: Cholecystectomy, Tonsillectomy, Other Additional Past Surgical Histo: left knee surgery Alcohol Use: None Drug Use: None Adult General Chief Complaint Chief Complaint: UPPER EXTREMITY PAIN [facility] HPI Patient is a 78 year old female presents to the ED complaining of left shoulder injury times one week ago. Patient states that she slept on her outstretched shoulder in a hyper-extended position. States since then she's been having pain and trouble raising her shoulder up over her head without support. Describes the pain as sharp. Rates the pain as 7 out of 10. States she has been taking ibuprofen which helps a little bit. Denies fever, chest pain, shortness of breath, back pain, neck pain, trauma injury, weakness, paresthesias , dizziness or nausea/vomiting. Review of Systems Review of Systems Constitutional: Denies fever or chills [] Eyes: Denies change in visual acuity, redness, or eye pain [] HENT: Denies nasal congestion or sore throat [] Respiratory: Denies cough or shortness of breath [] Cardiovascular: No additional information not addressed in HPI [] GI: Denies abdominal pain, nausea, vomiting, bloody stools or diarrhea [] : Denies dysuria or hematuria [] Musculoskeletal: Complains of shoulder injury. Denies back pain. [] Integument: Denies rash or skin lesions [] Neurologic: Denies headache, focal weakness or sensory changes [] All other systems were reviewed and found to be within normal limits, except as documented in this note. Allergies Allergies Allergies Coded Allergies Type Severity Reaction Last Updated Verified Antihistamines - Alkylamine Adverse Reaction Intermediate PALPITATIONS Yes Antihistamines - Ethanolamine Adverse Reaction Intermediate PALPITATIONS Yes Antihistamines - Ethylenediamine Adverse Reaction Intermediate PALPITATIONS Yes Antihistamines - Piperazine Adverse Reaction Intermediate PALPITATIONS Yes Antihistamines - Piperidine Adverse Reaction Intermediate PALPITATIONS Yes codeine Adverse Reaction Intermediate nausea 11/16/18 Yes ibuprofen Adverse Reaction Intermediate "increased heart rate" 11/16/18 Yes Physical Exam Physical Exam Constitutional: Well developed, well nourished, no acute distress, non-toxic appearance. [] HENT: Normocephalic, atraumatic Neck: Normal range of motion, no tenderness, supple, no stridor. [] Cardiovascular:Heart rate regular rhythm, no murmur [] Lungs & Thorax: Bilateral breath sounds clear to auscultation [] Skin: Warm, dry, no erythema, no rash. [] Back: No tenderness, no CVA tenderness. [] Extremities: mild left anterior left shoulder tenderness, decreased flexion with active ROM. +empty can test. Negative speeds and yergesons. no cyanosis, no clubbing, no edema. [] Neurologic: Alert and oriented X 3, normal motor function, normal sensory function, no focal deficits noted. [] Psychologic: Affect normal, judgement normal, mood normal. [] EKG EKG [] Radiology/Procedures Radiology/Procedures [] Course & Med Decision Making Course & Med Decision Making Pertinent Labs and Imaging studies reviewed. (See chart for details) []Patient states she slept in a hyperextended position. No traumatic injury. Patient states she feels like she tore her rotator cuff. Patient has a positive empty can test. Mild anterior left shoulder tenderness. Discussed getting an x- ray but patient refused (family at bedside). Patient has follow-up outpatient with her PCP tomorrow for possible MRI. Patient given a medication in the ED and states she is feeling much better. Discussed symptomatic treatment and the importance of follow-up tomorrow with PCP. Discussed reasons to return to the ED. Patient understands and agrees with plan. Dragon Disclaimer Dragon Disclaimer This electronic medical record was generated, in whole or in part, using a voice recognition dictation system. Departure Departure Impression: Primary Impression: Shoulder injury Disposition: 01 HOME, SELF-CARE Condition: IMPROVED Referrals: ADAM STILES MD (PCP) Patient Instructions: Rotator Cuff Injury BASSAM HENDERSON Dec 02, 2018 22:42
[2018-12-02] MEDS ORDERED: HYDROcodone/APAP 5/325MG 1 TAB TABLET PO ONE (23:00)
== END 2018-12-02 22:55 | disposition home or self-care (01) ==
LOC: ER 22:20
DX: S49.82XA Other specified injuries of left shoulder and upper arm, initial encounter (principal); E11.9 Type 2 diabetes mellitus without complications; E78.00 Pure hypercholesterolemia, unspecified; I10 Essential (primary) hypertension; Z86.73 Personal history of transient ischemic attack (TIA), and cerebral infarction without residual deficits; Z90.49 Acquired absence of other specified parts of digestive tract; Z90.89 Acquired absence of other organs; Z88.8 Allergy status to other drugs, medicaments and biological substances; Z88.5 Allergy status to narcotic agent; Z88.6 Allergy status to analgesic agent; X50.9XXA Other and unspecified overexertion or strenuous movements or postures, initial encounter; Y93.89 Activity, other specified; Y92.89 Other specified places as the place of occurrence of the external cause; Y99.8 Other external cause status
CPT/HCPCS: 99282

== ENCOUNTER 2020-05-31 12:47 | Emergency (ER) | payer MEDICARE ==
[~2020-05-31] VITALS: Ht 154.9 cm; Wt 65.0 kg
[~2020-05-31 12:47] MED LIST changes: -CALC600T4 PO; +CALC600T6 PO; +CYAN-25 PO; -CYAN10005 PO
--- NOTE | 2020-05-31 14:05 | PHYS DOC ---
Past Medical History Past Medical History: CVA, Diabetes-Type II, High Cholesterol, Hypertension, TIA, Other Additional Past Medical Histor: seasonal allergies,BELLS PALSEY (JOSE RODRIGUEZ APRN) Past Surgical History: Cholecystectomy, Tonsillectomy, Other Additional Past Surgical Histo: left knee surgery (JOSE RODRIGUEZ APRN) Smoking Status: Never Smoker Alcohol Use: None Drug Use: None (JOSE RODRIGUEZ APRN) General Adult EDM: Chief Complaint: LOWER BACK PAIN OR INJURY HPI: HPI: Patient is a 80 year old AA female who presents to the emergency department with complaints of right-sided low back pain for the last 2 days. She states that at times the area feels like a spasm. She denies any recent injury, or fall. She states that the pain is worse when she is up moving around. She denies any radiation of the pain to her leg. She denies any fever, cough, abdominal pain, dysuria, increased urinary frequency, incontinence, or hematuria. She currently rates pain 8 out of 10 on the pain scale, she denies any alleviating factors, the pain is worse with ambulation. (JOSE RODRIGUEZ APRN) Review of Systems: Review of Systems: Constitutional: Denies fever or chills. [] GI: Denies abdominal pain, nausea, or vomiting : Denies dysuria, increased frequency, hematuria, or incontinence. [] Musculoskeletal: Denies joint pain; see HPI Integument: Denies rash. [] Neurologic: Denies focal weakness or sensory changes. [] Complete ROS is negative unless otherwise stated in the HPI. (JOSE RODRIGUEZ APRN) Heart Score: Risk Factors: Risk Factors: DM, Current or recent (<one month) smoker, HTN, HLP, family history of CAD, obesity. Risk Scores: Score 0 - 3: 2.5% MACE over next 6 weeks - Discharge Home Score 4 - 6: 20.3% MACE over next 6 weeks - Admit for Clinical Observation Score 7 - 10: 72.7% MACE over next 6 weeks - Early Invasive Strategies (JOSE RODRIGUEZ APRN) Allergies: Allergies: Allergies Coded Allergies Type Severity Reaction Last Updated Verified Antihistamines - Alkylamine Adverse Reaction Intermediate PALPITATIONS 11/16/18 Yes Antihistamines - Ethanolamine Adverse Reaction Intermediate PALPITATIONS 11/16/18 Yes Antihistamines - Ethylenediamine Adverse Reaction Intermediate PALPITATIONS 11/16/18 Yes Antihistamines - Piperazine Adverse Reaction Intermediate PALPITATIONS 11/16/18 Yes Antihistamines - Piperidine Adverse Reaction Intermediate PALPITATIONS 11/16/18 Yes codeine Adverse Reaction Intermediate nausea 11/16/18 Yes ibuprofen Adverse Reaction Intermediate "increased heart rate" 11/16/18 Yes (JOSE RODRIGUEZ APRN) Physical Exam: PE: Constitutional: Well developed, well nourished, no acute distress, non-toxic appearance. [] HENT: Normocephalic, atraumatic, bilateral external ears normal, nose normal. [] Eyes: PERRLA, EOMI, conjunctiva normal, no discharge. [] Neck: Normal range of motion, no stridor. [] Cardiovascular:Heart rate regular rhythm Lungs & Thorax: Respirations even and unlabored, no retractions, no respiratory distress Abdomen: soft, no tenderness Back: No CVA tenderness, no bony tenderness; right lumbar paraspinal tenderness to palpation, negative straight leg lift, no bruising, no edema, no obvious deformity Skin: Warm, dry, no erythema, no rash. [] Extremities: No cyanosis, ROM intact, no edema. [] Neurologic: Alert and oriented X 3, no focal deficits noted. [] Psychologic: Affect normal, judgement normal, mood normal. [] (JOSE RODRIUGEZ APRN) Current Patient Data: Vital Signs: Vital Signs Date Time Temp Pulse Resp B/P (MAP) Pulse Ox O2 Delivery O2 Flow Rate FiO2 05/31/20 13:14 98.1 87 16 148/83 (104) 97 Room Air 98.1 (JOSE RODRIGUEZ APRN) EKG: EKG: [] (JOSE RODRIGUEZ APRN) Radiology/Procedures: Radiology/Procedures: PROCEDURE: LUMBAR SPINE 2-3V Examination: LUMBAR SPINE 2-3V History: Reason: R low back pain / Spl. Instructions: / History: Comparison/Correlation: 11/16/2018 CT abdomen and pelvis without contrast Findings: Total of 3 images of the lumbar spine were obtained. Fibroglandular clips are present. Levo convexity of the lumbar spine is present. Interstitial involving the low abdominal wall evident. Anterolisthesis of L4 in relation L5 less than grade 1 extent again seen. Facet joint degenerative changes of the lumbar spine. No fracture or bone destruction. Moderate disc space at L4-5 noted. Pelvic calcifications which probably represent phleboliths are again seen. Impression: Scoliosis. No change in anterolisthesis of L4 over L5. No fracture or bone destruction. [] (JOSE RODRIGUEZ APRN) Course & Med Decision Making: Course & Med Decision Making Pertinent Labs and Imaging studies reviewed. (See chart for details) 80-year-old female presents emergency department with complaints of right low back pain UA was unremarkable X-ray of lumbar spine revealed no acute findings. Prescriptions written for Flexeril and Medrol Dosepak. The patient was encouraged to apply ice or heat to sore area as needed for comfort. Follow-up w ith her primary care doctor in 1 to 2 days for reevaluation, return to the ER symptoms worsen. Patient verbalized an understanding of home care, medications, follow-up, and return to ED instructions and was in agreement with the plan of care. [] (JOSE RODRIGUEZ APRN) Course & Med Decision Making I have reviewed the PA/COMMUNICATIONS MAINTAINER's note and Plan of Care. I was available for consultation as needed during the patient's visit in the emergency department. I agree with the clinical impression, plans and disposition. (LILA PRICE MD) Gavin Disclaimer: Gavin Disclaimer: This electronic medical record was generated, in whole or in part, using a voice recognition dictation system. (JOSE RODRIGUEZ RN LPN CNA) Departure Departure Impression: Primary Impression: Pain in right paraspinal region Additional Impression: Acute right-sided low back pain without sciatica Disposition: 01 DC HOME SELF CARE/HOMELESS Condition: STABLE Referrals: ADAM STILES MD (PCP) Patient Instructions: Back Pain, Adult, [id number] Additional Instructions: Fill the prescription(s) and use as directed. Apply heat or ice for to sore areas as needed for comfort. Activity as tolerated. Follow up with your primary care doctor in 1 to 2 days, return to the ER if symptoms worsen. Scripts Methylprednisolone (MEDROL) 4 Mg Tab.ds.pk 1 PKG PO UD for 6 Days, #1 PKG 0 Refills Prov: JOSE RODRIGUEZ APRN 05/31/20 Cyclobenzaprine Hcl (CYCLOBENZAPRINE HCL) 10 Mg Tablet 0.5 TAB PO TID PRN for PAIN, #15 TAB 0 Refills Prov: JOSE RODRIGUEZ APRN 05/31/20 JOSE RODRIGUEZ APRN May 31, 2020 14:05 LILA PRICE MD May 31, 2020 14:54
[2020-05-31 14:18] LABS: BILIRUBIN,URINE NEGATIVE (NEG); CLARITY,URINE CLEAR; COLOR,URINE YELLOW; NITRITE,URINE NEGATIVE (NEG); PH,URINE 7.5 (<5.0-8.0); PROTEIN,URINE NEGATIVE (NEG-TRACE); UROBILINOGEN,URINE 0.2 mg/dL (0.2 mg/dL)
[2020-05-31 14:26] LABS: BACTERIA,URINE 0 /HPF (0-FEW); RBC,URINE 0 /HPF (0-2); WBC,URINE 0 /HPF (0-4)
--- NOTE | 2020-05-31 14:37 | RAD ---
Examination: LUMBAR SPINE 2-3V History: Reason: R low back pain / Spl. Instructions: / History: Comparison/Correlation: 11/16/2018 CT abdomen and pelvis without contrast Findings: Total of 3 images of the lumbar spine were obtained. Fibroglandular clips are present. Levo convexity of the lumbar spine is present. Interstitial involving the low abdominal wall evident. Anterolisthesis of L4 in relation L5 less than grade 1 extent again seen. Facet joint degenerative changes of the lumbar spine. No fracture or bone destruction. Moderate disc space at L4-5 noted. Pelvic calcifications which probably represent phleboliths are again seen. Impression: Scoliosis. No change in anterolisthesis of L4 over L5. No fracture or bone destruction. Electronically signed by: Panfilo Epstein MD (05/31/2020 2:34 PM) [facility]ATH[facility]
[2020-05-31] MEDS ORDERED: METH4TAB2 PO (14:46)
[2020-05-31] MEDS ORDERED: CYCL10TA2 PO (14:46)
[2020-05-31 15:00] VITALS: BP 151/93
== END 2020-05-31 14:58 | disposition home or self-care (01) ==
LOC: ER 12:47
DX: M54.5 Low back pain (principal); E78.00 Pure hypercholesterolemia, unspecified; E11.9 Type 2 diabetes mellitus without complications; I10 Essential (primary) hypertension; Z86.73 Personal history of transient ischemic attack (TIA), and cerebral infarction without residual deficits; Z90.49 Acquired absence of other specified parts of digestive tract; Z88.5 Allergy status to narcotic agent; Z88.8 Allergy status to other drugs, medicaments and biological substances
CPT/HCPCS: 72100; 81001; 99284

== ENCOUNTER 2020-11-18 10:28 | Emergency (ER) | payer MEDICARE ==
[~2020-11-18] VITALS: Ht 154.9 cm; Wt 63.6 kg
[~2020-11-18 10:28] MED LIST changes: +CYCL10TA2 PO; +METH4TAB2 PO
[2020-11-18 10:55] VITALS: BP 147/76
--- NOTE | 2020-11-18 10:57 | ED.ADGEN ---
Past Medical History Past Medical History: CVA, Diabetes-Type II, High Cholesterol, Hypertension, TIA, Other Additional Past Medical Histor: seasonal allergies,BELLS PALSEY Past Surgical History: Cholecystectomy, Tonsillectomy, Other Additional Past Surgical Histo: left knee surgery Smoking Status: Never Smoker Alcohol Use: None Drug Use: None General Adult EDM: Chief Complaint: MECHANICAL FALL HPI: HPI: Patient is a 80 year old female coming in for evaluation of facial trauma after a fall 1.5 days ago. Patient states it was mechanical fall she tripped on an uneven ground in a parking lot and fell forward. Patient states she struck her left forehead near her eyebrow and had a small laceration. Patient's been bandaging laceration. States she has not had any vision changes after the fall. Is concerned about fractures because of the swelling and bruising around her eye. Patient states she otherwise has been well. Patient denies any presyncopal or syncope symptoms surrounding fall. Patient is taking Plavix for a previous stroke Review of Systems: Review of Systems: All other systems within normal limits except for as noted in the HPI Allergies: Allergies: Allergies Coded Allergies Type Severity Reaction Last Updated Verified Antihistamines - Alkylamine Adverse Reaction Intermediate PALPITATIONS 11/16/18 Yes Antihistamines - Ethanolamine Adverse Reaction Intermediate PALPITATIONS 11/16/18 Yes Antihistamines - Ethylenediamine Adverse Reaction Intermediate PALPITATIONS 11/16/18 Yes Antihistamines - Piperazine Adverse Reaction Intermediate PALPITATIONS 11/16/18 Yes Antihistamines - Piperidine Adverse Reaction Intermediate PALPITATIONS 11/16/18 Yes codeine Adverse Reaction Intermediate nausea 11/16/18 Yes ibuprofen Adverse Reaction Intermediate "increased heart rate" 11/16/18 Yes Physical Exam: PE: Constitutional: Well developed, well nourished, no acute distress, non-toxic ap pearance. [] HENT: Normocephalic, hematoma around left orbit. No crepitus or step-offs. Bilateral TMs clear, no servin sign, bilateral external ears normal, nose normal. [] Eyes: PERRLA, conjunctiva normal, no discharge. Extraocular is intact [] Neck: No rigidity, supple, no stridor. No C-spine tenderness [] Cardiovascular: Regular rate and rhythm, brisk cap refill [] Lungs & Thorax: Non labored symmetric respirations, no tachypnea or respiratory distress [] Abdomen: Soft, nondistended. Skin: Warm, dry, no erythema, no rash. [] Back: Unremarkable Extremities: No deformities, range of motion grossly intact, no lower extremity edema [] Neurologic: Alert and oriented X 3, no focal deficits noted. No cranial nerve defect] Psychologic: Affect normal, judgement normal, mood normal. [] Current Patient Data: Vital Signs: Vital Signs Date Time Temp Pulse Resp B/P (MAP) Pulse Ox O2 Delivery O2 Flow Rate FiO2 11/18/20 10:55 98.0 85 18 147/76 (99) 98 Room Air 98.0 EKG: EKG: [] Heart Score: C/O Chest Pain: No Risk Factors: Risk Factors: DM, Current or recent (<one month) smoker, HTN, HLP, family history of CAD, obesity. Risk Scores: Score 0 - 3: 2.5% MACE over next 6 weeks - Discharge Home Score 4 - 6: 20.3% MACE over next 6 weeks - Admit for Clinical Observation Score 7 - 10: 72.7% MACE over next 6 weeks - Early Invasive Strategies Radiology/Procedures: Radiology/Procedures: CT HEAD AND C-SPINE WO History: Reason: fall / Spl. Instructions: / History: . Pain Comparison: December 31, 2016 Technique: Noncontrast CT imaging was performed of the head and cervical spine. Coronal and sagittal reconstructions were performed. Exposure: One or more of the following individualized dose reduction techniques were utilized for this examination: 1. Automated exposure control 2. Adjustment of the mA and/or kV according to patient size 3. Use of iterative reconstruction technique. Findings: Head CT: No intracranial hemorrhage. No mass effect. No hydrocephalus. Mild brain parenchymal volume loss. Moderate foci of decreased attenuation within the hemispheric white matter. Mild dilatation of the lateral ventricles, unchanged and likely due to central brain parenchymal volume loss. Chronic left occipital infarct. Imaged orbits are unremarkable. Imaged paranasal sinuses and mastoid air cells are clear. No acute calvarial fracture. Left frontal scalp subcutaneous lipoma measures 1.[address]: Chronic ununited C1 posterior arch. Normal vertebral body height and alignment. No acute fracture. Moderate multilevel degenerative disc changes most prominent C3-C4, C4-C5 and C5-C6. Advanced facet arthropathy. Multilevel canal narrowing. C3-C4 central disc extrusion contributing to moderate to severe canal narrowing. C4-C5 moderate canal narrowing. C5-C6 central disc protrusion contributing to canal narrowing. Multilevel neuroforaminal narrowing. Left thyroid nodule measures 2.2 cm. Impression: Head CT: 1. No acute intracranial abnormality. 2. Brain parenchymal volume loss and sequela of chronic microvascular ischemia, unchanged. 3. Chronic left occipital infarct. Cervical spine CT: 1. No acute fracture or subluxation of the cervical spine. 2. Moderate multilevel cervical spondylosis most prominent C3-C4, C4-C5 and C5- C6. MRI can further evaluate as clinically warranted. 3. C3-C4 disc extrusion contributing to moderate to severe canal narrowing. Additional canal and neuroforaminal narrowing. Electronically signed by: Steve Mayfield DO (11/18/2020 12:26 PM) [id number][] Course & Med Decision Making: Course & Med Decision Making Pertinent Labs and Imaging studies reviewed. (See chart for details) [] Dragon Disclaimer: Dragon Disclaimer: This electronic medical record was generated, in whole or in part, using a voice recognition dictation system. Departure Departure Impression: Primary Impression: Fall Additional Impression: Head injury Disposition: 01 DC HOME SELF CARE/HOMELESS Condition: STABLE Referrals: ADAM STILES MD (PCP) Patient Instructions: Hematoma Problem Qualifiers CARLOS HERNÁNDEZ MD Nov 18, 2020 10:57
--- NOTE | 2020-11-18 12:28 | RAD ---
CT HEAD AND C-SPINE WO History: Reason: fall / Spl. Instructions: / History: . Pain Comparison: December 31, 2016 Technique: Noncontrast CT imaging was performed of the head and cervical spine. Coronal and sagittal reconstructions were performed. Exposure: One or more of the following individualized dose reduction techniques were utilized for thi s examination: 1. Automated exposure control 2. Adjustment of the mA and/or kV according to patient size 3. Use of iterative reconstruction technique. Findings: Head CT: No intracranial hemorrhage. No mass effect. No hydrocephalus. Mild brain parenchymal volume loss. Moderate foci of decreased attenuation within the hemispheric whi te matter. Mild dilatation of the lateral ventricles, unchanged and likely due to central brain paren chymal volume loss. Chronic left occipital infarct. Imaged orbits are unremarkable. Imaged paranasal sinuses and mastoid air cells are clear. No acute ca lvarial fracture. Left frontal scalp subcutaneous lipoma measures 1.[address]: Chronic ununited C1 posterior arch. Normal vertebral body height and alignment. No acute fracture. Moderate multilevel degenerative disc changes most prominent C3-C4, C4-C5 and C5-C6. Advanced facet a rthropathy. Multilevel canal narrowing. C3-C4 central disc extrusion contributing to moderate to ab re canal narrowing. C4-C5 moderate canal narrowing. C5-C6 central disc protrusion contributing to can al narrowing. Multilevel neuroforaminal narrowing. Left thyroid nodule measures 2.2 cm. Impression: Head CT: 1. No acute intracranial abnormality. 2. Brain parenchymal volume loss and sequela of chronic microvascular ischemia, unchanged. 3. Chronic left occipital infarct. Cervical spine CT: 1. No acute fracture or subluxation of the cervical spine. 2. Moderate multilevel cervical spondylosis most prominent C3-C4, C4-C5 and C5-C6. MRI can further e valuate as clinically warranted. 3. C3-C4 disc extrusion contributing to moderate to severe canal narrowing. Additional canal and chris roforaminal narrowing. Electronically signed by: Steve Mayfield DO (11/18/2020 12:26 PM) [id number]
== END 2020-11-18 13:10 | disposition home or self-care (01) ==
LOC: ER 10:28
DX: S05.12XA Contusion of eyeball and orbital tissues, left eye, initial encounter (principal); E11.9 Type 2 diabetes mellitus without complications; E78.00 Pure hypercholesterolemia, unspecified; I10 Essential (primary) hypertension; M47.812 Spondylosis without myelopathy or radiculopathy, cervical region; Z86.73 Personal history of transient ischemic attack (TIA), and cerebral infarction without residual deficits; Z88.5 Allergy status to narcotic agent; Z88.8 Allergy status to other drugs, medicaments and biological substances; W01.0XXA Fall on same level from slipping, tripping and stumbling without subsequent striking against object, initial encounter; Y93.89 Activity, other specified; Y92.481 Parking lot as the place of occurrence of the external cause; Y99.8 Other external cause status
CPT/HCPCS: 70450; 72125; 99285-25

== ENCOUNTER 2021-01-04 22:00 | Emergency (ER) | payer MEDICARE ==
[~2021-01-04] VITALS: Ht 157.5 cm; Wt 65.8 kg
[~2021-01-04 22:00] MED LIST changes: -CALC600T6 PO; +CALC600T60 PO
--- NOTE | 2021-01-04 22:25 | PHYS DOC ---
Past Medical History Past Medical History: CVA, Diabetes-Type II, High Cholesterol, Hypertension, TIA, Other Additional Past Medical Histor: seasonal allergies,BELLS PALSEY Past Surgical History: Cholecystectomy, Tonsillectomy, Other Additional Past Surgical Histo: left knee surgery Smoking Status: Never Smoker Alcohol Use: None Drug Use: None General Adult EDM: Chief Complaint: BLURRED/DOUBLE VISION HPI: HPI: Patient is a 80 year old female has medical history of TIAs presents for evaluation of blurry vision in left eye. Patient states she woke up from a nap around around 2000hrs and noticed blurry vision on her left eye. Patient denies any vision loss. Patient denies any other associated symptoms. Patient states blurry vision in left eye has greatly improved since initial onset but still present. Patient currently on plavix. Review of Systems: Review of Systems: Constitutional: Denies fever or chills. [] Eyes: Denies change in visual acuity. [] HENT: Denies nasal congestion or sore throat. [] Respiratory: Denies cough or shortness of breath. [] Cardiovascular: Denies chest pain or edema. [] GI: Denies abdominal pain, nausea, vomiting, bloody stools or diarrhea. [] : Denies dysuria. [] Musculoskeletal: Denies back pain or joint pain. [] Integument: Denies rash. [] Neurologic: Denies headache, focal weakness or sensory changes. [] Endocrine: Denies polyuria or polydipsia. [] Lymphatic: Denies swollen glands. [] Psychiatric: Denies depression or anxiety. [] Heart Score: C/O Chest Pain: N/A Risk Factors: Risk Factors: DM, Current or recent (<one month) smoker, HTN, HLP, family history of CAD, obesity. Risk Scores: Score 0 - 3: 2.5% MACE over next 6 weeks - Discharge Home Score 4 - 6: 20.3% MACE over next 6 weeks - Admit for Clinical Observation Score 7 - 10: 72.7% MACE over next 6 weeks - Early Invasive Strategies Allergies: Allergies: Allergies Coded Allergies Type Severity Reaction Last Updated Verified Antihistamines - Alkylamine Adverse Reaction Intermediate PALPITATIONS 11/16/18 Yes Antihistamines - Ethanolamine Adverse Reaction Intermediate PALPITATIONS 11/16/18 Yes Antihistamines - Ethylenediamine Adverse Reaction Intermediate PALPITATIONS 11/16/18 Yes Antihistamines - Piperazine Adverse Reaction Intermediate PALPITATIONS 11/16/18 Yes Antihistamines - Piperidine Adverse Reaction Intermediate PALPITATIONS 11/16/18 Yes codeine Adverse Reaction Intermediate nausea 11/16/18 Yes ibuprofen Adverse Reaction Intermediate "increased heart rate" 11/16/18 Yes Physical Exam: PE: General: alert, no acute distress. Skin: warm, dry and intact. Head:: Normocephalic, atraumatic. Neck: Trachea midline. Eyes: EOMI, Normal conjunctiva, No drainage CARDIOVASCULAR: Regular rate and rhythm RESPIRATORY: No respiratory distress Back: Full range of motion. MUSCULOSKELETAL: Full range of motion of bilateral upper and lower extremities. GASTROINTESTINAL: Abdomen soft without rebound or guarding. NEUROLOGICAL: Alert and noted to person, place and time. No neurological deficits observed Psychiatric: Cooperative. Normal judgment Current Patient Data: Vital Signs: Vital Signs Date Time Temp Pulse Resp B/P (MAP) Pulse Ox O2 Delivery O2 Flow Rate FiO2 01/04/21 22:12 98.0 95 18 133/87 (102) 99 Room Air 98.0 EKG: EKG: [] EKG performed at 2324 heart rate [address] elevation no ST depression no acute [place] Radiology/Procedures: Radiology/Procedures: [] Impression: Noncontrast CT head negative for acute abnormality Since contrast CT head neck no large vessel occlusions Course & Med Decision Making: Course & Med Decision Making Pertinent Labs and Imaging studies reviewed. (See chart for details) [] Patient was evaluated for chief complaint. She was activated as a code stroke. Patient's complaining symptoms of blurry vision in left eye. CT imaging with no acute abnormalities. I discussed all results with the patient. I discussed and recommended hospitalization with neurology consult in the a.m. Patient advised to me that she would prefer to go home. Patient states she can follow-up with her neurologist on outpatient basis. Patient states her vision is back to normal. She has no neurological deficits. Will discharge patient home at her request with instructions to follow-up with neurology. Patient advised to return to the ER if symptoms return persist or any new concerning symptoms arise. Dragon Disclaimer: Dragon Disclaimer: This electronic medical record was generated, in whole or in part, using a voice recognition dictation system. NIHSS Stroke Scale NIH Stroke Scale: NIH Stroke Scale Response (Comments) Value Level of Consciousness: 0 Alert/Responsive 0 LOC Questions: 0 Answers both correctly 0 LOC Commands: 0 Performs both tasks 0 Best Gaze: 0 Normal 0 Visual: 0 No visual loss 0 Facial Palsy: 0 Normal, symmetrical 0 Motor - Left Arm 0 No drift 0 Motor - Right Arm 0 No drift 0 Motor - Left Leg 0 No drift 0 Motor: Right Leg 0 No drift 0 Limb Ataxia: 0 Absent 0 Sensory: 0 No loss 0 Best Language: 0 Normal 0 Dysathria: 0 Normal 0 Extinction and Inattention: 0 Normal 0 Total 0 Departure Departure Impression: Primary Impression: TIA (transient ischemic attack) Additional Impression: Blurred vision, left eye Disposition: 01 HOME / SELF CARE / HOMELESS Condition: STABLE Referrals: ADAM STILES MD (PCP) Patient Instructions: Eye - Blurred Vision, Transient Ischemic Attack DELVIS TRINIDAD I DO January 04, 2021 22:25
[2021-01-04 22:38] LABS: BASO % 1 % (0-3); EOS # 0.1 x10^3/uL (0.0-0.7); EOS % 1 % (0-3); HEMATOCRIT 33.2 % (36.0-47.0); HEMOGLOBIN 11.1 g/dL (12.0-15.5); LYMPH # 2.1 x10^3/uL (1.0-4.8); LYMPH % 38 % (24-48); MEAN CORPUSCULAR HEMOGLOBIN 30 pg (25-35); MEAN CORPUSCULAR HGB CONC 33 g/dL (31-37); MEAN CORPUSCULAR VOLUME 91 fL (79-100); MONO # 0.6 x10^3/uL (0.0-1.1); MONO % 10 % (0-9); NEUT # 2.8 x10^3/uL (1.8-7.7); NEUT % 50 % (31-73); PLATELET COUNT 275 x10^3/uL (140-400); RED BLOOD COUNT 3.66 x10^6/uL (3.50-5.40); RED CELL DISTRIBUTION WIDTH 14.1 % (11.5-14.5); WHITE BLOOD COUNT 5.6 x10^3/uL (4.0-11.0)
[2021-01-04] MEDS ORDERED: CONTRAST GIVEN. MC PRN (22:45)
[2021-01-04 22:48] LABS: CALCIUM 8.9 mg/dL (8.5-10.1); CREATININE 0.7 mg/dL (0.6-1.0); GFR 97.4; POTASSIUM 3.5 mmol/L (3.5-5.1)
--- NOTE | 2021-01-04 22:51 | RAD ---
Exam: CT head INDICATION: Blurred vision TECHNIQUE: Sequential axial images through the head were obtained without the administration of IV co ntrast. Exposure: One or more of the following in the visualized dose reduction techniques were utilized for this examination: 1. Automated exposure control 2. Adjustment of the MA and/or KV according to patient size 3. Use of iterative of reconstructive technique Comparisons: 11/18/2020 FINDINGS: No focal parenchymal lesion or hemorrhage is identified. There is no midline shift or sulcal effaceme nt. Chronic infarct at the medial left occipital lobe. Patchy hypodensity in the periventricular white ma tter bilaterally. No acute vascular territory infarction is identified. Childress-white distinction is pre served. The ventricular system is within normal limits without compression hydrocephalus. The basal cisterns are well maintained. The visualized portions of the paranasal sinuses and mastoid air cells are well-pneumatized. No acute fractures. IMPRESSION: Chronic changes without acute abnormality identified. No intracranial hemorrhage. FOR INTERNAL CODING PURPOSES Critical result: Findings discussed with Vargas at 01/04/2021 10:47 PM. RESULT CODE: (C) Electronically signed by: Amish Chang MD (01/04/2021 10:49 PM) [facility]
[2021-01-04] MEDS ORDERED: IOHEXOL 350 MG/ML 100 ML VIAL. IV ONE (23:00)
[2021-01-04 23:02] LABS: ALBUMIN 3.9 g/dL (3.4-5.0); ALBUMIN/GLOBULIN RATIO 0.9 (1.0-1.7); TOTAL BILIRUBIN 0.4 mg/dL (0.2-1.0); TOTAL PROTEIN 8.1 g/dL (6.4-8.2)
--- NOTE | 2021-01-04 23:06 | RAD ---
Exam: CTA head and neck INDICATION: Blurry vision TECHNIQUE: Sequential axial images through the head and neck obtained following the administration of 75 mL of Omni 350 IV contrast. Sagittal and coronal reformatted images were reconstructed from the a xial data and reviewed. 3-D reformatted images were reconstructed from the axial data and reviewed. Exposure: One or more of the following in the visualized dose reduction techniques were utilized for this examination: 1. Automated exposure control 2. Adjustment of the MA and/or KV according to patient size 3. Use of iterative of reconstructive technique Comparisons: CT head without contrast same day FINDINGS: CTA NECK: Visualized portions of the thoracic aorta are unremarkable. Standard three-vessel aortic arch anatomy . Right common carotid artery is patent without evidence of stenosis, occlusion or aneurysm. Cervical s egment of the right internal carotid artery is patent without evidence of stenosis, occlusion or aneu rysm. Left common carotid artery is patent without evidence of stenosis, occlusion or aneurysm. Cervical se gment of the left internal carotid artery is patent without evidence of stenosis, occlusion or aneury sm. Right vertebral artery is patent to the basilar confluence without evidence of stenosis, occlusion or aneurysm. Left vertebral artery is patent to the basilar confluence without evidence of stenosis, occlusion or aneurysm. Heterogenous appearance of the thyroid gland. CTA HEAD: Mild calcified plaque at the cavernous segment of the right internal carotid artery without significa nt stenosis. Right MCA is patent. Right [place] is patent. Mild calcified plaque cavernous segment of the left internal carotid artery without significant steno sis. Left MCA is patent. Left [place] is patent. Basilar artery is patent without evidence of stenosis, occlusion or aneurysm. tax credit leasing consultant are patent bilater ally. IMPRESSION: 1. No large vessel occlusion. 2. No calcified plaque at the cavernous segments of the internal carotid arteries bilaterally withou t significant stenosis. 3. Heterogenous appearance of the thyroid gland, similar in appearance to CT 2015. Correlation with prior thyroid ultrasound is recommended. FOR INTERNAL CODING PURPOSES Critical result: Findings discussed with Vargas at 01/04/2021 10:57 PM. RESULT CODE: (C) Electronically signed by: Amish Chang MD (01/04/2021 11:04 PM) [facility]
[2021-01-04 23:30] VITALS: BP 140/91
[2021-01-04] MEDS ORDERED: ASPIRIN CHEWABLE 81 MG TABLET. PO ONE (23:30)
[2021-01-04] MEDS ORDERED: LOSA25TA12 PO (23:48)
[2021-01-04] MEDS ORDERED: HYDR25TA10 PO (23:48)
[2021-01-04] MEDS ORDERED: FLUT16SP NS (23:48)
[2021-01-04] MEDS ORDERED: METF10007 PO (23:48)
[2021-01-04] MEDS ORDERED: CLOP75TA PO (23:48)
[2021-01-05] MEDS ORDERED: IOHEXOL 350 MG/ML 100 ML VIAL. ONE (17:11)
== END 2021-01-05 | disposition home or self-care (01) ==
LOC: ER 22:00 → 2 SOUTH 23:09 → UNDOADMOB 23:09 → ER 01-05
DX: G45.9 Transient cerebral ischemic attack, unspecified (principal); H53.8 Other visual disturbances; E11.9 Type 2 diabetes mellitus without complications; E78.00 Pure hypercholesterolemia, unspecified; I10 Essential (primary) hypertension; Z90.49 Acquired absence of other specified parts of digestive tract; Z86.73 Personal history of transient ischemic attack (TIA), and cerebral infarction without residual deficits; Z88.5 Allergy status to narcotic agent; Z88.8 Allergy status to other drugs, medicaments and biological substances
CPT/HCPCS: 36415; 70450; 70496; 70498; 80053; 82962; 84484; 85025; 93005; 99285; Q9967

== ENCOUNTER 2021-06-27 08:44 | Emergency (ER) | payer OTHER, MEDICARE ==
[~2021-06-27] VITALS: Ht 157.5 cm; Wt 61.3 kg
[~2021-06-27 08:44] MED LIST changes: +CLOP75TA PO; +CYCL10TA19 PO; -CYCL10TA2 PO; +FLUT16SP NS; +HYDR25TA10 PO; +LOSA25TA4 PO; +METF10007 PO
[2021-06-27 08:54] VITALS: BP 136/87
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
--- NOTE | 2021-06-27 09:56 | RAD ---
XR BILATERAL HIP (WITH OR WITHOUT PELVIS) LEFT 2 VIEWS Clinical indications: Trauma 06-26-21/pain Findings: No acute fracture or dislocation or osteolytic process is evident. No diastases of the sym physis pubis or either SI joint is seen. IMPRESSION: No acute osseous abnormality is evident. Electronically signed by: Farhad Dewitt MD (06/27/2021 9:54 AM) [id number]
== END 2021-06-27 10:17 | disposition home or self-care (01) ==
LOC: ER 08:44
DX: S70.02XA Contusion of left hip, initial encounter (principal); E11.9 Type 2 diabetes mellitus without complications; E78.00 Pure hypercholesterolemia, unspecified; I10 Essential (primary) hypertension; Z86.73 Personal history of transient ischemic attack (TIA), and cerebral infarction without residual deficits; Z90.49 Acquired absence of other specified parts of digestive tract; Z88.5 Allergy status to narcotic agent; Z88.8 Allergy status to other drugs, medicaments and biological substances; V49.59XA Passenger injured in collision with other motor vehicles in traffic accident, initial encounter; Y93.89 Activity, other specified; Y92.488 Other paved roadways as the place of occurrence of the external cause; Y99.8 Other external cause status
CPT/HCPCS: 73502; 99283